=== PATIENT | female | born 1960 | race Caucasian/White ===

== ENCOUNTER 2020-08-26 12:47 | Outpatient (REF) | payer BC, SELFPAY | END 2020-08-26 12:48 | disposition home or self-care (01) | LOC: HO.BBR 12:47 | PROVIDERS: Visit Provider Internal Medicine Gastroenterology | DX: E83.110 Hereditary hemochromatosis (principal) | CPT/HCPCS: 99195 ==

== ENCOUNTER 2020-09-10 11:23 | Outpatient (REF) | payer BC, SELFPAY | END 2020-09-10 11:24 | disposition home or self-care (01) | LOC: HO.BBR 11:23 | PROVIDERS: PCP Internal Medicine; Visit Provider Internal Medicine Gastroenterology | DX: E83.110 Hereditary hemochromatosis (principal) | CPT/HCPCS: 99195 ==

== ENCOUNTER 2020-09-24 07:57 | Outpatient (REF) | payer BC, SELFPAY | END 2020-09-24 07:58 | disposition home or self-care (01) | LOC: HO.BBR 07:57 | PROVIDERS: Visit Provider Internal Medicine Gastroenterology | DX: Z13.89 Encounter for screening for other disorder (principal) ==

== ENCOUNTER 2020-12-25 08:05 | Outpatient (REF) | payer BC, SELFPAY | END 2020-12-25 08:06 | disposition home or self-care (01) | LOC: HO.BBR 08:05 | PROVIDERS: Visit Provider Internal Medicine Gastroenterology | DX: Z13.89 Encounter for screening for other disorder (principal) ==

== ENCOUNTER 2021-03-25 08:42 | Outpatient (REF) | payer BC, SELFPAY | END 2021-03-25 08:43 | disposition home or self-care (01) | LOC: HO.BBR 08:42 | PROVIDERS: Visit Provider Internal Medicine Gastroenterology | DX: Z13.89 Encounter for screening for other disorder (principal) ==

== ENCOUNTER 2021-07-22 08:03 | Outpatient (REF) | payer BC, SELFPAY | END 2021-07-22 08:04 | disposition home or self-care (01) | LOC: HO.BBR 08:03 | PROVIDERS: PCP Internal Medicine; Visit Provider Internal Medicine Gastroenterology | DX: Z13.89 Encounter for screening for other disorder (principal) ==

== ENCOUNTER 2022-01-12 08:38 | Outpatient (REF) | payer BC, SELFPAY | END 2022-01-12 08:39 | disposition home or self-care (01) | LOC: HO.BBR 08:38 | PROVIDERS: Visit Provider Internal Medicine Gastroenterology | DX: Z13.89 Encounter for screening for other disorder (principal) ==

== ENCOUNTER 2022-07-14 08:54 | Outpatient (REF) | payer BC, SELFPAY | END 2022-07-14 08:55 | disposition home or self-care (01) | LOC: HO.BBR 08:54 | PROVIDERS: Visit Provider Internal Medicine Gastroenterology | DX: Z13.89 Encounter for screening for other disorder (principal) ==

== ENCOUNTER 2022-12-08 07:58 | Outpatient (REF) | payer BC, SELFPAY | END 2022-12-08 07:59 | disposition home or self-care (01) | LOC: HO.BBR 07:58 | PROVIDERS: Visit Provider Internal Medicine Gastroenterology | DX: Z13.89 Encounter for screening for other disorder (principal) ==

== ENCOUNTER 2023-05-12 07:59 | Outpatient (REF) | payer BC, SELFPAY | END 2023-05-12 08:00 | disposition home or self-care (01) | LOC: HO.BBR 07:59 | PROVIDERS: Visit Provider Internal Medicine Gastroenterology | DX: Z13.89 Encounter for screening for other disorder (principal) ==

== ENCOUNTER 2023-10-17 09:07 | Outpatient (REF) | payer BC, SELFPAY | END 2023-10-17 09:08 | disposition home or self-care (01) | LOC: HO.BBR 09:07 | PROVIDERS: Visit Provider Internal Medicine Gastroenterology | DX: Z13.89 Encounter for screening for other disorder (principal) ==

== ENCOUNTER 2024-03-19 08:56 | Outpatient (REF) | payer BC, SELFPAY | END 2024-03-19 08:57 | disposition home or self-care (01) | LOC: HO.BBR 08:56 | PROVIDERS: PCP Internal Medicine; Visit Provider Internal Medicine Gastroenterology | DX: Z13.89 Encounter for screening for other disorder (principal) ==

== ENCOUNTER 2024-09-03 07:58 | Outpatient (REF) | payer BC, SELFPAY | END 2024-09-03 07:59 | disposition home or self-care (01) | LOC: HO.BBR 07:58 | PROVIDERS: PCP Internal Medicine; Visit Provider Internal Medicine Gastroenterology | DX: Z13.89 Encounter for screening for other disorder (principal) | CPT/HCPCS: 85018; 99195 ==

== ENCOUNTER 2024-09-24 08:10 | Outpatient (REF) | payer SELFPAY | END 2024-09-24 08:11 | disposition home or self-care (01) | LOC: HO.BBR 08:10 | PROVIDERS: PCP Internal Medicine; Visit Provider Internal Medicine Gastroenterology | DX: Z13.89 Encounter for screening for other disorder (principal) ==

== ENCOUNTER 2024-11-12 07:51 | Outpatient (AMB) | payer BC, SELFPAY ==
--- NOTE | 2024-11-12 07:47 | A.OFFVIS_ITS ---
Vital Signs 11/12/24 07:53 Height 5 ft 4 in Weight 201 lb 8 oz BMI 34.6 BP 132/88 Blood Pressure Location Lt brachial Position Sitting Pulse 80 Pulse Source Pulse Oximeter Pulse Oximetry (%) 97 Oxygen Delivery Method Room Air Intake Visit Reasons: ENP-FRAN Allergies celecoxib [From Celebrex] Allergy (Intermediate, Verified 11/12/24 07:56) Hives bisacodyl [From Dulcolax (bisacodyl)] Allergy (Verified 11/12/24 07:56) Hives sumatriptan Allergy (Verified 11/12/24 07:56) Hives Medication List - Last Reconciled 11/12/24 by Veronica Gil PA-C fluticasone furoate-vilanterol 200-25 mcg/dose 1 ea inhalation DAILY letrozole 2.5 mg PO DAILY omeprazole 40 mg PO QAM tirzepatide (Mounjaro) mg subcut HPI Comments Details: 63 year old female with Breast cancer in remission, referred to us by PCP for sleep evaluation. She reports she is on CPAP, however her machine is not working properly and she continues to have fragmented sleep, and feels exhausted. She goes to bed around 10pm wakes up at 7am with one bathroom break. She was sent to us by Dr. Esqueda with [facility]. for evaluation. She always wakes up with morning headaches, which become full blown migraines with auras photophobia/ phonophobia, vertigo, balance, difficulties. She says they are well controlled with her diet and lifestyle management. She is in remission for Breast Cancer, f/u with Dr. Woods and taking Letrozole. She has Hemachromotosis, Phlebotomy every 4 months. Doesn't have good results with her current sleep company getting replacement equipment. Her BMI is elevated and has type II Diabetes, on 12.5 Monjarou, subcut x1 week. Her mood is stable, some family changes and she is adjusting to [facility]. Diet is well balanced, vegetables, seafood, limits Red meat, denies alcohol, smoking. Headaches: Frontal always radiating to the back, painful, they can and do at times become full blown migraines with auras, photo/phonophobia, vertigo, balance difficulties and nausea. [facility] Surgical History Hx of cholecystectomy S/P right rotator cuff repair History of total left knee replacement Family History Mother Esophageal cancer Maternal Grandfather Leukemia Social History Household Members: Spouse Housing: House Alcohol intake: current Alcohol intake frequency: a few times a week Alcohol type: wine and hard liquor Patient Tobacco Use Status: Never used Tobacco service: No Current occupational status: retired Cognitive needs: No Hearing needs: No Vision needs: Yes Physical Exam Vital Signs: Last Vital Signs Pulse 80 11/12/24 07:53 BP 132/88 11/12/24 07:53 Pulse Ox 97 11/12/24 07:53 Oxygen Delivery Method Room Air 11/12/24 07:53 BMI result Body Mass Index 34.6 Const General: cooperative, comfortable and no acute distress Nutritional Appearance: average body habitus and obese (BMI 34) Orientation/consciousness: patient oriented x3 HEENT Face and sinus: Yes normal facial exam and Yes face symmetric Teeth and gingiva: other ([place] score of 3) Eyes Pupils: Equal, round and reactive pupils present EOM: Nystagmus present Resp Effort & Inspection: normal respiratory effort and able to speak in complete sentences Neuro General: patient oriented x3 and moves all extremities Cranial nerves: Yes CN's II-XII intact bilaterally, Yes Facial sensation intact/muscles of mastication intact, Yes Equal, round and reactive pupils present, Yes Normal accommodation reflex present, Yes Bilaterally intact EOM present, Yes Nystagmus not present, Yes Normal facial strength present, Yes Midline tongue present, Yes Ability to bilaterally rotate head present (Limited ROM R>L), Yes Ability to bilaterally elevate shoulders present and Yes Nystagmus present Cognition (Neuro): normal cognition Gait exam (Neuro): Normal gait present Motor exam (neuro): 5/5 motor strength present throughout, Pronator motor function not present, Tremors during motor activity present (R.hand tremor always present) and Motor abnormalites present (Tremor R Hand ) Deep tendon reflexes (DTR's): Right triceps reflex intensity grade: 2+, Left triceps reflex intensity grade: 2+, Rt Biceps (C5, C6): 2+, Left biceps reflex intensity grade: 2+, Right brachioradialis reflex intensity grade: 2+, Left brachioradialis reflex intensity grade: 2+, Right patellar reflex intensity grade: 2+, Left patellar reflex intensity grade: 2+, Right ankle reflex intensity grade: 2+ and Left ankle reflex intensity grade: 2+ Coordination: [id number] test normal Psych Appearance: grossly normal Speech and movement: Normal speech and movement present Affect: normal affect Thought process: Normal thought process present Thought content: Normal thought content present Insight: Good insight present (Psych) Judgement: Good judgement present (Psych) Assessment & Plan Assessment & Plan (1) Fatigue due to sleep pattern disturbance: Code(s): R53.83 - Other fatigue; G47.9 - Sleep disorder, unspecified Category: Medical (2) Morning headache: Code(s): R51.9 - Headache, unspecified Category: Medical (3) Tremor of right hand: Code(s): R25.1 - Tremor, unspecified Category: Medical (4) Cervicalgia: Code(s): M54.2 - Cervicalgia Category: Medical Plan Morning Headaches /Migraines with Cervicalgia Will discuss Triptans at next visit as she doesn't want to take anymore medications. Patient Education: Use of [place], neck wraps, topical lidocaine can be helpful for Cervicalgia d/t migraines. Fatigue / due to intermittent sleep patterns/ - will evaluate with HST. Patient Education: Sleep in a dark room, no devices in bed, no fluids 2-4 hours prior to bedtime. R. Hand / UE Tremor will send her to PT if bothersome. Will Follow up in 3 months, after Sleep Study. Call the office or message us if you have any questions or concerns. Orders: Orders RT home sleep study Today G47.9 - Sleep disorder, unspecified, R53.83 - Other fatigue Coding Level of Care Code Tele New Pt Level 3 (98979) Diagnoses Fatigue due to sleep pattern disturbance R53.83; G47.9 Morning headache R51.9 Tremor of right hand R25.1 Cervicalgia M54.2 Time Spent (min) 30 Comment Evaluation Sleep Questionnaire Difficulty falling asleep: Yes (take longer to sleep) Difficulty staying asleep?: Yes Number of arousals: muscle cramping LE Snoring: No Witnessed apneas: No Gasping arousals: No Nocturia: No GERD: Yes (Omeprazole ) Vivid dreams: No Acting out dreams: No Abnormal behavior in sleep: No Abnormal movements in sleep: No Morning headaches: Yes (cervical fusion c3-c6) Excessive daytime sleepiness: No Daytime naps: Yes (2x / a month) Restless legs: No Hallucinations: No Sleep paralysis: No Drop attacks: No Sleep Study: Yes (May 2020) CPAP: Yes (It is not working, needs new machine.)
[2024-11-12 07:53] VITALS: BP 132/88; PULSE 80; O2SAT 97; BMI 34.6
--- OUTSIDE RECORDS SUMMARY | 2024-11-12 07:53 | XMS_ITS ---
Author Organization Fahad Esqueda MD Address [address] [place] [id number] Care Team Providers Care Post Closing Specialist Name Role Phone Fahad Esqueda Primary Care Provider [phone] REASON FOR VISIT Test results Encounters Encounter Location Date Provider Diagnosis Fahad Esqueda MD [address] [place] [address] [place] [id number] 10/17/2024 Fahad Esqueda Plan Of Treatment Next Appt Details Provider Name:Fahad Esqueda , 02/20/2025 09:30:00 AM, [address] [place] [address], [id number], Provider Name:Fahad Esqueda , 05/15/2025 10:15:00 AM, [address] [place] [address], [phone], Progress Notes * Brigette SALCIDO LDOB: 3 (63 yo F)Acc No.[id number]:10/17/2024 Patient:?Brigette SALCIDO :1960???Age:63 Y???Sex:Female Address:[address] [place] [address], [address] * true * Date:? Generated for Marily ramirez/Yolande/eTransmitting on:?11/12/2024 07:53 AM EST
--- OUTSIDE RECORDS SUMMARY | 2024-11-12 07:54 | XMS_ITS | Continuity of Care Document ---
Author Organization [facility] Address [address] [place] [id number] Care Team Providers Care Licensed Nursing Assistant Name Role Phone Fahad Esqueda MD Primary Care Physician [phone] [id number] Date(s): 07/13/24 - 11/10/[address] [address] Attending Physician: Fahad Esqueda MD Admitting Physician: Fahad Esqueda MD Referring Physician: Fahad Esqueda MD Encounter Type: Pre-OutPatient One Time Allergies, Adverse Reactions, Alerts Substance Criticality Severity Reaction Reaction Severity Status Imitrex hives, trouble breathing Active Dulcolax Laxative hives , tr ouble breathing Active CeleBREX hives, trouble breathing Active Trulicity hives Active Immunizations Given and Recorded Vaccine Date Status Refusal Reason Hepatitis A-Hepatitis B Vaccine 1 08/26/08 Given Hepatitis A-Hepatitis B Vaccine 2 12/06/07 Given Hepatitis A-Hepatitis B Vaccine 3 11/08/07 Given 1Admin Note: twinrix#3 2Admin Note: twinrix#2 3Admin Note: twinrix#1 Medications albuterol CFC free 90 mcg/inh inhalation aerosol 2, puffs, Inhalation, 4 times a day, PRN, # 8 Gm, Refills 0, Maintenance, 08/08/20 9:43:00 AM EDT, Aerosol Start Date: 08/08/20 Status: Ordered Quantity: 8.0 Unit: g Repeat number: 1 benadryl elixir 4 oz; lidocaine viscous 2% 100 ml; mylanta or maalox 8 oz; benadryl elixir 4 oz; lidocaine viscous 2% 100 ml; mylanta or maalox 8 oz;, See Instructions, # 460mL, Refills 5, Tot. Refills 5, Maintenance, 1-2 tsp q 2-4 hrs prn. Take 5 min prior to swallowing food. Shake well before use and refrigerate unused portion, 10/24/20 11:06:00 AM EST, Compound, 161, cm, 08/27/20 10:09:00 EDT, Height, 96.5, kg, 08/27/20 10:09:00 EDT, Dry Weight Start Date: 10/24/20 Status: Ordered Quantity: 460.0 Unit: mL Repeat number: 6 D3 1000 2,000iu, By Mouth, Daily, 2000IU, 0 Refills, Maintenance, 12/31/20 3:51:00 PM EST, Partial fill uponpatient request if the prescription is for a schedule II opioid drug. Start Date: 12/31/20 Status: Ordered Repeat number: 1 Dulera 200 mcg-5 mcg/inh inhalation aerosol 0 Refills, Maintenance, 01/05/21 9:45:00 AM EST, Partial fill upon patient request if the prescription is for a schedule II opioid drug. Start Date: 01/05/21 Status: Ordered Repeat number: 1 fluticasone-vilanterol 200 mcg-25 mcg/inh inhalation powder 0 Refills, Maintenance, 05/01/24 1:11:00 PM EDT, Partial fill upon patient request if the prescription is for a schedule II opioid drug. Start Date: 05/01/24 Status: Ordered Repeat number: 1 gabapentin 300 mg oral capsule Refills 0, Maintenance, 05/01/24 1:12:00 PM EDT, Partial fill upon patient request if the prescription is for a schedule II opioid drug. Start Date: 05/01/24 Status: Ordered Repeat number: 1 letrozole 2.5 mg oral tablet 1 tablet, By Mouth, Daily, # 90 tablet, 3 Refills, Maintenance, 06/20/24 3:59:00 PM EDT, [facility]/pharmacy #[id number], 161, cm, 05/01/24 13:08:00 EDT, Height, 88.6, kg, 01/18/24 10:09:00 EDT, Dry Weight Start Date: 06/20/24 Stop Date: 06/15/25 Status: Ordered Quantity: 90.0 Unit: tablet Repeat number: 4 Loratadine 10 mg, By Mouth, Daily in AM, Refills 0, Maintenance, 07/11/20 1:29:00 PM EDT Start Date: 07/11/20 Status: Ordered Repeat number: 1 Medrol 4 mg oral tablet 1 pack/packet, By Mouth, Once, # 21 tablet, 0 Refills, Soft Stop, 05/01/24 1:30:00 PM EDT, Tablet, [facility]/pharmacy #[id number], Partial fill upon patient request if the prescription is for a schedule II opioiddrug., 161, cm, 05/01/24 13:08:00 EDT, Height, 88.6, kg, 01/18/24 10:09:00 EDT, Dry Weight Start Date: 05/01/24 Status: Ordered Quantity: 21.0 Unit: tablet Repeat number: 1 Mounjaro Subcutaneous Infusion, 0 Refills, Maintenance, 01/18/24 10:45:00 AM EDT, Partial fill upon patient request if the prescription is for a schedule II opioid drug. Start Date: 01/18/24 Status: Ordered Repeat number: 1 Mounjaro 5 mg/0.5 mL subcutaneous solution 0 Refills, Maintenance, 05/01/24 1:13:00 PM EDT, Partial fill upon patient request if the prescription is for a schedule II opioid drug. Start Date: 05/01/24 Status: Ordered Repeat number: 1 Multivitamin Tablet By Mouth, Daily, 0 Refills, Maintenance, 12/31/20 3:51:00 PM EST, Partial fill upon patient request if the prescription is for a schedule II opioid drug. Start Date: 12/31/20 Status: Ordered Repeat number: 1 Nexium 20 mg oral enteric coated capsule 1 capsule = 20 mg, By Mouth, 2 times a day, 0 Refills, Maintenance, 10/19/18 8:36:19 AM EST Start Date: 10/19/18 Status: Ordered Repeat number: 1 Ozempic (0.25 mg or 0.5 mg dose) 0 Refills, Maintenance, 01/27/22 9:59:00 AM EDT, Partial fill upon patient request if the prescription is for a schedule II opioid drug. Start Date: 01/27/22 Status: Ordered Repeat number: 1 Xigduo XR By Mouth, Daily in AM, 0 Refills, Maintenance, 08/17/21 3:18:00 PM EDT, Partial fill upon patient request if the prescription is for a schedule II opioid drug. Start Date: 08/17/21 Status: Ordered Repeat number: 1 Problem List Condition Confirmation Course Effective Dates Status Health St atus Informant Malignant neoplasm of lower-outer quadrant of right breast of female, estrogen receptor positive Confirmed Active Obese class II Confirmed Active Social History Social History Type Response Smoking Status Never (less than 100 in lifetime) entered on: 11/03/18 Sex Sex Representation Female (finding) Patient Care team information Care Team Personnel Name: Cheri Sullivan Position: [facility] Onco RN Member Role: Primary Care Nurse Name: Mala Herring RN Position: [facility] Onco RN Member Role: Primary Care Nurse Name: Mala East RN Position: [facility] Onco RN Member Role: Primary Care Nurse Name: Eli Pinon RN Position: [facility] Onco RN Member Role: Primary Care Nurse Name: Fahad Esqueda MD Position: [facility] Physician - Primary Care Member Role: PCP Address: [address] [place] [address] [address] [place] [address]- Telecom: Care Team Related Persons Name: SALO SALCIDO Insurance Providers Guarantor name: HEATHER OMARI Health Plan Information #: 1 Payer: [employer] Member Number: [id number] Policy Number: NA Group Number: [id number] Health Plan Information #: 2 Payer: [employer] Member Number: [id number] Policy Number: NA Group Number: [id number]
--- OUTSIDE RECORDS SUMMARY | 2024-11-12 07:54 | XMS_ITS ---
Author Organization [facility] Address [address] [place] [address] Phone Care Team Providers Care Drawbridge Operator Name Role Phone [facility] Unavailable [phone] Plan of Treatment No Plan of Treatment Recorded Assessments Includes: Assessments for all patient encounters No Assessments Recorded Medical Equipment - Implanted Devices Includes: Current and historical Devices No Medical Equipment Recorded Medications Includes: Current and historical Medications Current Medications (continue as prescribed) Augmentin 500-125 MG Oral Tablet 05/20/2022 Provider : Diagnosis: Last Documented On 2 7:55AM By Howard oMtta ; [facility] Bactrim 400-80 MG Oral Tablet 05/20/2022 Provider: Diagnosis: Last Documented On 2 7:55AM By Howard Motta ; [facility] Medications Administered Includes: Administered Medications in patient's chart No Administered Medications Recorded Results Includes: Results from 11/12/2023 through 11/12/2024 No Results Recorded For Specified Dates History of Present Illness History of Present Illness not supported for this document type No History of Present Illness Recorded Social History No Social History Recorded - Smoking Status Unknown Medical History Includes: Medical History in patient's chart No Medical History Recorded Family History Includes: Family History in patient's chart No Family History Recorded Review of Systems Review of Systems not supported for this document type No Review of Systems Recorded Mental Status No Mental Status Recorded Functional Status No Functional Status Recorded Physical Exam Physical Exam not supported for this document type No Physical Exam Recorded Insurance Includes: Active Insurance Policies Plan Name Member ID Group # Subscriber Relationship Effect zay Dates 1 - [employer] [id number] HEATHER SALCIDO Se lf Clinical Notes Includes: Signed Clinical Notes starting from 10/17/2022 No Clinical Notes Recorded
--- OUTSIDE RECORDS SUMMARY | 2024-11-12 07:54 | XMS_ITS | Clinical Summary ---
Author Organization [facility] Address [address] [place] [address] Phone Care Team Providers Care Worker'S Compensation Claims Examiner Name Role Phone [facility] [phone] Reason for Visit and Chief Complaint Post Op Visit/Follow Up Plan of Treatment Pending Tests Order Diagnosis Results Due Ordering P pietro Follow Up - Appointment 1 Week Cellulit is of right finger 05/20/22 Pa Duenas MD Last Documented On 2 8:14AM ; [facility] Assessments Includes: Assessments from this encounter No Assessments Recorded Medical Equipment - Implanted Devices Includes: Current Devices No Medical Equipment Recorded Medications Includes: Medications discussed during this encounter and other current Medications Current Medications (continue as prescribed) Augmentin 500-125 MG Oral Tablet 05/20/2022 Provider : Diagnosis: Last Documented On 2 7:55AM By Howard Motta ; [facility] Bactrim 400-80 MG Oral Tablet 05/20/2022 Provider: Diagnosis: Last Documented On 2 7:55AM By Howard Motta ; [facility] Medications Administered Includes: Administered Medications from this encounter No Administered Medications Recorded Vital Signs Includes: Vital Signs from this encounter Vital Name 05/20/2022 07:54A Blood Pressure Sitting (mmHg) 107/74 Pulse Rate-Sitting (bpm) 73 Temp-Oral (F) 97.7 Height (in) 64 Weight (lb) 200 Body Mass Index (kg/m2) 34.3 Body Surface Area (m2) 2.0 Oxygen Saturation (%) 98 Last Documented: On 05/20/2022 7:55AM ; [facility] Results Includes: Results discussed during this encounter No Results Recorded For Specified Dates History of Present Illness Includes: History of Present Illness from this encounter No History of Present Illness Recorded Social History No Social History Recorded - Smoking Status Unknown Medical History Includes: Medical History addressed during this encounter No Medical History Recorded Family History Includes: Family History addressed during this encounter No Family History Recorded Review of Systems Includes: Review of Systems from this encounter No Review of Systems Recorded Mental Status Includes: Mental Status from this encounter No Mental Status Recorded Functional Status Includes: Functional Status from this encounter No Functional Status Recorded Physical Exam Includes: Physical Exam from this encounter Encounters Encounter Provider Location Date Check-In Time Check-Out Time Diagnosis Post Op Visit/Follow Up Pa Duenas MD [facility] 05/20/20 22 8:00AM 8:16AM Insurance Includes: Active Insurance Policies Plan Name Member ID Group # Subscriber Relationship Effect zay Dates 1 - [facility] Elect [id number] HEATHER SALCIDO Se lf Clinical Notes Includes: Clinical Notes from this encounter No Clinical Notes Recorded
--- OUTSIDE RECORDS SUMMARY | 2024-11-12 07:54 | XMS_ITS | Clinical Summary ---
Author Organization [facility] Address [address] [place] [address] Phone Care Team Providers Care Orthopaedic Surgeon Name Role Phone [facility] Unavailable Unavailable Reason for Visit and Chief Complaint Established Patient Plan of Treatment No Plan of Treatment Recorded Assessments Includes: Assessments from this encounter No Assessments Recorded Medical Equipment - Implanted Devices Includes: Current Devices No Medical Equipment Recorded Medications Includes: Medications discussed during this encounter and other current Medications Current Medications (continue as prescribed) Augmentin 500-125 MG Oral Tablet 05/20/2022 Provider : Diagnosis: Last Documented On 2 7:55AM By Howard Motta ; [facility] Bactrim 400-80 MG Oral Tablet 05/20/2022 Provider: Diagnosis: Last Documented On 2 7:55AM By Howard Motta ; [facility] Medications Administered Includes: Administered Medications from this encounter No Administered Medications Recorded Vital Signs Includes: Vital Signs from this encounter Vital Name 06/03/2022 08:17A Blood Pressure Sitting (mmHg) 140/85 Pulse Rate-Sitting (bpm) 66 Temp-Temporal 97.1 Height (in) 64 Weight (lb) 200 Body Mass Index (kg/m2) 34.3 Body Surface Area (m2) 2.0 Oxygen Saturation (%) 99 Last Documented: On 06/03/2022 8:17AM ; [facility] Results Includes: Results discussed during this encounter [...] Location Date Check-In Time Check-Out Time Diagnosis Established Patient Isaiah Russo MD [facility] 022 8:20AM 8:23AM Insurance Includes: Active Insurance Policies Plan Name Member ID Group # Subscriber Relationship Effect zay Dates 1 - [employer] [id number] HEATHER SALCIDO Se lf Clinical Notes Includes: Clinical Notes from this encounter No Clinical Notes Recorded
--- OUTSIDE RECORDS SUMMARY | 2024-11-12 07:54 | XMS_ITS | Patient Health Record ---
Author Organization [facility] Address [address] [place] [phone] Care Team Providers Care Restaurant Greeter Name Role Phone [facility] Primary Care Provider Allergies Allergen (clinical drug ingredient) Drug/Non Drug Allergy documented on EMR Reaction Allergy Type Onset Date Status celecoxib Celebrex Hives Drug Allergy Active Doc-Q-Lace Unknown Drug Allergy Active sumatriptan Imitrex Unknown Drug Allergy Activ e spironolactone Spironolactone Unknown Drug Allergy Active dulaglutide Trulicity Itching Drug Allergy 04/08/2021 Acti ve Results Component Value Reference Range Notes Hemoglobin A1C Reviewed date:10/16/2024 06:33:53 PM Interpretation: Performing Lab: Notes/Report: [facility] Lot: [id number] Ferritin-[id number] Reviewed date:10/17/2024 09:05:08 AM Interpretation: Performing Lab:[facility], [address] [place] [address], Phone - [phone], Director - MDJodry Notes/Report: Ferritin 34 15-150 ng/mL Comp. Metabolic Panel (14)-3 [id number] Reviewed date:10/17/2024 09:05:08 AM Interpretation: Performing Lab:[facility], [email or web address] [facility], Phone - [phone], Director - MDJodry Notes/Report: Glucose 83 70-99 mg/dL BUN 15 8-27 mg/dL Creatinine 0.77 0.57-1.00 mg/dL eGFR 88 >59 mL/min/1.73 BUN/Creatinine Ratio 19 12-28 Sodium 140 134-144 mmol/L Potassium 4.1 3.5-5.2 mmol/L Chloride 103 96-106 mmol/L Carbon Dioxide, Total 22 20-29 mmol/L Calcium 9.7 8.7-10.3 mg/dL Protein, Total 6.9 6.0-8.5 g/dL Albumin 4.4 3.9-4.9 g/dL Globulin, Total 2.5 1.5-4.5 g/dL Bilirubin, Total 0.2 0.0-1.2 mg/dL Alkaline Phosphatase 97 44-121 IU/L AST (SGOT) 22 0-40 IU/L ALT (SGPT) 24 0-32 IU/L MR Cervical Spine WO Reviewed date:01/18/2024 06:22:43 PM Interpretation: Performing Lab: Notes/Report: Original Ordering Provider: FAHAD DE LA PAZ MD [facility] Hemoglobin A1C Reviewed date:08/03/2024 01:21:37 PM Interpretation: Performing Lab: Notes/Report: [facility] Lot: [id number] Iron and TIBC-[id number] Reviewed date:08/07/2024 06:13:28 PM Interpretation: Performing Lab:[facility], [address] [facility], Phone - [phone], Director - Umesh Notes/Report: Iron Bind.Cap.(TIBC) 329 250-450 ug/dL UIBC 163 118-369 ug/dL Iron 166 27-139 ug/dL Iron Saturation 50 15-55 % Urinalysis, Complete-[id number] Reviewed date:08/07/2024 06:13:28 PM Interpretation: Performing Lab:[facility], [address] [facility], Phone - [phone], Director - Umesh Notes/Report: Specific Dundee 1.008 1.005-1.030 pH 6.0 5.0-7.5 Urine-Color Yellow Yellow Appearance Clear Clear WBC Esterase Negative Negative Protein Negative Negative/Trace Glucose Trace Negative Ketones Negative Negative Occult Blood Negative Negative Bilirubin Negative Negative Urobilinogen,Semi-Qn 0.2 0.2-1.0 mg/dL Nitrite, Urine Negative Negative Microscopic Examination Micr oscopic follows if indicated. Microscopic Examination See below: Micr oscopic was indicated and was performed. WBC None seen 0 - 5 /hpf RBC 0-2 0 - 2 /hpf Epithelial Cells (non renal) None seen 0 - 10 /hpf Casts None seen None seen /lpf Bacteria None seen None seen/Few Ferritin-[id number] Reviewed date:08/07/2024 06:13:28 PM Interpretation: Performing Lab:[facility] [place], [address] [facility], Phone - [phone], Director - Umesh Notes/Report: Ferritin 82 15-150 ng/mL Albumin/Creatinine Ratio,Uri ne-[id number] Reviewed date:08/07/2024 06:13:28 PM Interpretation: Performing Lab:[facility] [place], [address] [facility], [place], Phone - [phone], Director - Umesh Notes/Report: Creatinine, Urine 18.3 Not Estab. mg/dL Albumin, Urine <3.0 Not Estab. ug/mL Alb/Creat Ratio <16 0-29 mg/g creat Normal: 0 - 29 Moderately increased: 30 - 300 Severely increased: >300 Comp. Metabolic Panel (14)-3 [id number] Reviewed date:08/07/2024 06:13:28 PM Interpretation: Performing Lab:[facility] [place], [address] [facility], [place], Phone - [phone], Director - Umesh Notes/Report: Glucose 65 70-99 mg/dL BUN 14 8-27 mg/dL Creatinine 0.70 0.57-1.00 mg/dL eGFR 98 >59 mL/min/1.73 BUN/Creatinine Ratio 20 12-28 Sodium 138 134-144 mmol/L Potassium 4.5 3.5-5.2 mmol/L Chloride 103 96-106 mmol/L Carbon Dioxide, Total 19 20-29 mmol/L Calcium 10.4 8.7-10.3 mg/dL Protein, Total 7.5 6.0-8.5 g/dL Albumin 4.5 3.9-4.9 g/dL Globulin, Total 3.0 1.5-4.5 g/dL Bilirubin, Total 0.3 0.0-1.2 mg/dL Alkaline Phosphatase 99 44-121 IU/L AST (SGOT) 29 0-40 IU/L ALT (SGPT) 28 0-32 IU/L Hemoglobin A1C Reviewed date:06/05/2024 07:18:33 AM Interpretation: Performing Lab: Notes/Report: [facility] ([facility]), [facility] Lot: [id number] Iron and TIBC-[id number] Reviewed date:06/05/2024 07:18:32 AM Interpretation: Performing Lab:[address], Phone - [phone], Director - Umesh Notes/Report: Iron Bind.Cap.(TIBC) 344 250-450 ug/dL UIBC 306 118-369 ug/dL Iron 38 27-139 ug/dL Iron Saturation 11 15-55 % Urinalysis, Complete-[id number] Reviewed date:06/05/2024 07:18:32 AM Interpretation: Performing Lab:[address], Phone - [phone], Director - Umesh Notes/Report: Specific Dundee 1.010 1.005-1.030 pH 6.0 5.0-7.5 Urine-Color Yellow Yellow Appearance Clear Clear WBC Esterase Negative Negative Protein Negative Negative/Trace Glucose Negative Negative Ketones Negative Negative Occult Blood Negative Negative Bilirubin Negative Negative Urobilinogen,Semi-Qn 0.2 0.2-1.0 mg/dL Nitrite, Urine Negative Negative Microscopic Examination Micr oscopic follows if indicated. Microscopic Examination See below: Micr oscopic was indicated and was performed. WBC None seen 0 - 5 /hpf RBC None seen 0 - 2 /hpf Epithelial Cells (non renal) None seen 0 - 10 /hpf Casts None seen None seen /lpf Bacteria None seen None seen/Few Ferritin-[id number] Reviewed date:06/05/2024 07:18:32 AM Interpretation: Performing Lab:[facility] [address], Phone - [phone], Director - Umesh Notes/Report: Ferritin 17 15-150 ng/mL CBC With Differential/Platel et-[id number] Reviewed date:06/05/2024 07:18:32 AM Interpretation: Performing Lab:[address], Phone - [phone], Director - Umesh Notes/Report: WBC 7.4 3.4-10.8 x10E3/uL RBC 5.06 3.77-5.28 x10E6/uL Hemoglobin 15.1 11.1-15.9 g/dL Hematocrit 47.2 34.0-46.6 % MCV 93 79-97 fL MCH 29.8 26.6-33.0 pg MCHC 32.0 31.5-35.7 g/dL RDW 13.2 11.7-15.4 % Platelets 347 150-450 x10E3/uL Neutrophils 68 Not Estab. % Lymphs 22 Not Estab. % Monocytes 7 Not Estab. % Eos 2 Not Estab. % Basos 1 Not Estab. % Neutrophils (Absolute) 5.0 1.4-7.0 x10E3/uL Lymphs (Absolute) 1.7 0.7-3.1 x10E3/uL Monocytes(Absolute) 0.5 0.1-0.9 x10E3/uL Eos (Absolute) 0.2 0.0-0.4 x10E3/uL Baso (Absolute) 0.1 0.0-0.2 x10E3/uL Immature Granulocytes 0 Not Estab. % Immature Grans (Abs) 0.0 0.0-0.1 x10E3/uL Vitamin D, 90-Jtrpsfx-[id number] Reviewed date:06/05/2024 07:18:32 AM Interpretation: Performing Lab:[facility], [address] [facility], [place], Phone - [phone], Director - Umesh Notes/Report: Vitamin D, 25-Hydroxy 41.1 30.0-100.0 ng/mL Vitamin D deficiency has been defined by the [place] of [employer] and an Endocrine Society practice guideline as a level of serum 25-OH vitamin D less than 20 ng/mL (1,2). The Endocrine Society went on to further define vitamin D insufficiency as a level between 21 and 29 ng/mL (2). 1. IOM ([place] of Medicine). 2010. Dietary reference intakes for calcium and D. [place]: The National Academies Press. 2. Roverto MF, Mario NC, Boris ADAMS, et al. Evaluation, treatment, and prevention of vitamin D deficiency: an Endocrine Society clinical practice guideline. JCEM. 2010; 96(7):1911-30. Albumin/Creatinine Ratio,Uri ne-[id number] Reviewed date:06/05/2024 07:18:33 AM Interpretation: Performing Lab:[facility], [address] [place] [address], Phone - [phone], Director - [facility] Notes/Report: Creatinine, Urine 18.3 Not Estab. mg/dL Albumin, Urine 6.5 Not Estab. ug/mL Alb/Creat Ratio 36 0-29 mg/g creat Normal: 0 - 29 Moderately increased: 30 - 300 Severely increased: >300 Comp. Metabolic Panel (14)-3 31225 Reviewed date:06/05/2024 07:18:33 AM Interpretation: Performing Lab:[facility] [place], [address] [place] [address], Phone - [phone], Director - [facility] Notes/Report: Glucose 98 70-99 mg/dL BUN 14 8-27 mg/dL Creatinine 0.67 0.57-1.00 mg/dL eGFR 99 >59 mL/min/1.73 BUN/Creatinine Ratio 21 12-28 Sodium 142 134-144 mmol/L Potassium 4.5 3.5-5.2 mmol/L Chloride 105 96-106 mmol/L Carbon Dioxide, Total 22 20-29 mmol/L Calcium 10.1 8.7-10.3 mg/dL Protein, Total 7.0 6.0-8.5 g/dL Albumin 4.5 3.9-4.9 g/dL Globulin, Total 2.5 1.5-4.5 g/dL Bilirubin, Total <0.2 0.0-1.2 mg/dL Alkaline Phosphatase 102 44-121 IU/L AST (SGOT) 25 0-40 IU/L ALT (SGPT) 22 0-32 IU/L LP+Non-HDL Cholesterol-[id number] 5 Reviewed date:06/05/2024 07:18:33 AM Interpretation: Performing Lab:[facility], [address] [place] [address], Phone - [phone], Director - [facility] Notes/Report: Cholesterol, Total 213 100-199 mg/dL Triglycerides 165 0-149 mg/dL HDL Cholesterol 69 >39 mg/dL VLDL Cholesterol Sridhar 29 5-40 mg/dL LDL Chol Calc (NIH) 115 0-99 mg/dL Non-HDL Cholesterol 144 0-129 mg/dL HCV Antibody-[id number] Reviewed date:06/05/2024 07:18:33 AM Interpretation: Performing Lab:[facility] [place], [address] [place] [address], Phone - [phone], Director - Umesh Notes/Report: Hep C Virus Ab Non Reactive Non Reactive HCV antibody alone does not differentiate between previously resolved infection and active infection. Equivocal and Reactive HCV antibody results should be followed up with an HCV RNA test to support the diagnosis of active HCV infection. PDF Report Reviewed date:06/05/2024 07:18:33 AM Interpretation: Performing Lab:[facility], [address] [facility], [place], Phone - [phone], Director - Umesh Notes/Report: 25OH VITAMIN D Reviewed date:12/22/2023 05:33:20 AM Interpretation: Performing Lab:Testing performed or reported by [facility], a Service of [address] [address] Art Elise MD, [employer] Maker CAAZ# [id number] Notes/Report: 25OH VITAMIN D 42.4 (20-50) NG/ML COMPLETE URINALYSIS Reviewed date:12/22/2023 05:33:20 AM Interpretation: Performing Lab:Testing performed or reported by [facility], a Service of [address] [address] Art Elise MD, Cap Maker CLAZ# [id number] Notes/Report: APPEAR/COLOR COLORLESS CLEAR SP. GRAVITY 1.023 (1.002-1.030) URINE PH 5.5 (5.0-8.0) URINE ALBUMIN NEGATIVE (NEG) URINE GLUCOSE 4+ (NEG) URINE KETONES NEGATIVE (NEG) URINE BILIRUBIN NEGATIVE (NEG) URINE HEMOGLOBIN NEGATIVE (NEG) URINE NITRITE NEGATIVE (NEG) URINE LEUKOCYTE NEGATIVE (NEG) UROBILINOGEN NORMAL (NORM) MG/DL URINE WBCs <1 (0-5) /HPF URINE RBCs NONE SEEN (0-3) /HPF SQUAMOUS EPITH <1 (0-8) /HPF COMPREHENSIVE METABOLIC PANE L Reviewed date:12/22/2023 05:33:20 AM Interpretation: Performing Lab:Testing performed or reported by [facility], a Service of [address] [address] Art Elise MD, Cap Maker CLGARCIA# [id number] Notes/Report: GLUCOSE 137 (70-99) MG/DL BUN 16 (8-23) MG/DL CREATININE 0.7 (0.5-1.0) MG/DL SODIUM 142 (133-145) MMOL/L POTASSIUM 3.7 (3.6-5.2) MMOL/L CHLORIDE 106 (98-107) MMOL/L BICARBONATE 24 (22-29) MMOL/L ANION GAP 12 (4-17) ALBUMIN 4.7 (3.4-4.8) GM/DL CALCIUM 10.1 (8.6-10.5) MG/DL BILIRUBIN,TOTAL 0.3 (0-1.2) MG/DL TOTAL PROTEIN 7.2 (6.2-8.2) GM/DL AG RATIO 1.9 AST 27 (0-32) U/L ALK PHOS 89 (35-104) U/L ALT 28 (0-33) U/L ESTIMATED GFR CREATININE 92 Creatinine based estimated glomerular filtration (eGFR) in adults is calculated using the National Kidney Foundation recommended 2020 CKD-EPI equation. Estimates GFR from serum creatinine, age and sex. FERRITIN Reviewed date:12/22/2023 05:33:20 AM Interpretation: Performing Lab:Testing performed or reported by [facility], [place] [address] Art Elise MD, [employer] Maker [facility]# [id number] Notes/Report: FERRITIN 19 (14-283) NG/ML IRON & TIBC Reviewed date:12/22/2023 05:33:20 AM Interpretation: Performing Lab:Testing performed or reported by [facility], [place] [address] Art Elise MD, Cap Maker [facility]# [id number] Notes/Report: IRON 61 (30-160) MCG/DL UNSATURATED IRON BINDING CAPAC 281 (110-370) MCG/DL EST T. IRON BIND CAPACITY 342 (140-530) MCG/DL % IRON SATURATION 18 (20-55) % URINARY MICROALBUMIN Reviewed date:12/22/2023 05:33:20 AM Interpretation: Performing Lab:Testing performed or reported by [facility], [place] [address] Art Elise MD, Cap Maker [facility]# [id number] Notes/Report: MICRO-ALBUMIN <12.0 (<20) MG/L The urine microalbumin test is designed to monitor renal function. When screening for Bence Duke proteinuria, urine electrophoresis is recommended. MALB/CREAT RATIO Unable to calculate (0-20) MG/GM URINE CREAT FOR MICRO ALBUMIN 49.4 Hemoglobin A1C Reviewed date:12/22/2023 05:33:20 AM Interpretation: Performing Lab: Notes/Report: [facility] MD [place] Lot: [id number] Reason For Referral Reason Faxed Diagnosis 1 Other spondylosis wi th radiculopathy, cervical region (M47.22) Referral Organization [facility] Referring Provider First Name Fahad Referring Provider Last Name Dheeraj Referring Provider Speciality Internal M edicine Referred Provider Kelechi Rivers Referred Provider Specialty Pain Medicin e General Notes Kati CRAWFORD 03:21:32 PM > faxed they will call Patient directly Referral Priority Routine Referral Appointment Date 02/29/2024 Reason faxed Diagnosis 1 Spondylosis without myelopathy or radiculopathy, cervical region (M47.812) Referral Organization [facility] Referring Provider First Name Fahad Referring Provider Last Name Dheeraj Referring Provider Speciality Internal M edicine Referred Provider [place] Referral, N [employer] Referred Provider Specialty Neurosurgery General Notes Lissa CRAWFORD 03/08 04:44:25 PM >faxed Referral Priority Routine Reason faxed Diagnosis 1 Obstructive sleep ap herve (adult) (pediatric) (G47.33) Referral Organization [facility] Referring Provider First Name Fahad Referring Provider Last Name Dheeraj Referring Provider Speciality Internal M edicine Referred Provider [place] Referral, M dfqbowx-Iipj-Bgvwxh-ID-Pulmonary Referred Provider Specialty Sleep Medici ne General Notes Lissa CRAWFORD 03/09 01:02:36 PM >faxed, Kati CRAWFORD 04/12/2024 02:22:26 PM > they will contact patient directly Referral Priority Routine Reason faxed Diagnosis 1 Hereditary hemochrom atosis (E83.110) Referral Organization [facility] Referring Provider First Name Fahad Referring Provider Last Name Dheeraj Referring Provider Speciality Internal M edicine Referred Provider Chapito Bailon Referred Provider Specialty Gastroentero logy General Notes Lissa CRAWFORD 04/08 10:51:06 AM >faxed Referral Priority Routine Reason faxed Diagnosis 1 Obstructive sleep ap herve (adult) (pediatric) (G47.33) Referral Organization [facility] Referring Provider First Name Fahad Referring Provider Last Name Dheeraj Referring Provider Speciality Internal M edicine Referred Provider Abimbola Pickard Referred Provider Specialty Sleep Medici ne General Notes [facility] 05:24[facility]32 PM >faxed Referral Priority Routine Medications Medication SIG (Take, Route, Frequency, Duration) Notes Start Date End Date Status DayVigo 5 MG 1 tablet at bedtime Orally Once a day for 10 days 04/08/2021 Not-Taking Acetaminophen 500 MG 1 tablet as needed Orally every 6 hrs Active Mounjaro 12.5 MG/0.5ML 12.5 mg Subcutaneous Once a Week Active Letrozole 2.5 MG 1 tablet Orally Once a day for 30 day(s) Active Calcium 600 MG Activ e Calcium 1200+D3 1200/1000 by mouth daily Active Multi For Her Active Omeprazole 40 MG TAKE 1 CAPSULE BY MOUTH EVERY DAY 30 MINUTES BEFORE BREAKFAST for 90 Active Loratadine 10 MG 1 tablet Orally Once a day for 30 day(s) Active Vitamin D3 2000 UNIT 2 Orally Once a day for 30 day(s) Active Fluticasone Furoate-Vilanterol 200-25 MCG/ACT INHALE 1 PUFF BY MOUTH EVERY DAY for 90 Active Gabapentin 300 MG TAKE 1 CAPSULE BY MOUTH TWICE DAILY for 90 Not-Taking Farxiga 10 MG 1 tablet Orally Once a day for 90 days Brand name only 12/21/2023 08/02/2025 Active Immunizations Vaccine Route Administration Date Status Comme nts Varicella Unknown 12/11/2018 Administered Series 1 as a child Pneumococcal polysaccharide PPV23 Unknown 12/08/2011 Administered Pneumococcal polysaccharide PPV23 Unknown 01/14/2017 Administered Influenza-Afluria (IIV4) Unknown 08/06/2021 Administered Influenza, seasonal, injectable (split), for 3 yrs and up Unknown 08/09/2012 Administered Influenza, seasonal, injectable (split), for 3 yrs and up Unknown 07/27/2013 Administered Influenza, seasonal, injectable (split), for 3 yrs and up Unknown 12/25/2014 Administered Influenza, seasonal, injectable (split), for 3 yrs and up Unknown 10/15/2015 Administered Influenza, seasonal, injectable (split), for 3 yrs and up Unknown 07/20/2017 Administered Influenza Vaccine, Seasonal, Quadrivalent, Recombinant, Preservative Free Unknown 08/27/2020 Administered Hep A-Hep B Unknown 11/08/2007 Administered Mfd by Glax o Glycodeine Hep A-Hep B Unknown 12/06/2007 Administered Mfd by Glax o Glycodeine Hep A-Hep B Unknown 08/26/2008 Administered Mfd by Glax o Glycodeine XPEZB-02-Xdyalso Vaccine Unknown 01/09/2021 Administered WRHYI-05-Dgdmevb Vaccine Unknown 02/06/2021 Administered UAUKM-48-Mounpnb Vaccine Unknown 10/12/2021 Administered COVID-19 Moderna BiValent Booster Unknown 09/17/2022 Administered *Tdap Unknown 04/24/2013 Administered *Tdap Unknown 10/16/2020 Administered *Influenza-Medicare-A S IM Intramuscular 08/06/2021 Administered *Influenza-Fluzone IM Intramuscular 08/03/2024 Administere d *Bxpxhwqzw-Ikbu-XU IM Intramuscular 09/26/2019 Administere d *Vevoinmng-Dvch-MM IM Intramuscular 08/18/2022 Administere d Social History Tobacco Use: Social History Observation Description Date Details (start date - stop date) Never Smoker NA - NA Tobacco Use/Smoking Question Answer Notes Are you a nonsmoker Additional Findings: Tobacco Non-User Non-smoker for personal reasons Alcohol Screen (Audit-C) Question Answer Notes Did you have a drink contain ing alcohol in the past year? Yes How often did you have a dri nk containing alcohol in the past year? 2 to 3 times a week (3 points) How many drinks did you have on a typical day when you were drinking in the past year? 3 or 4 drinks (1 point) How often did you have 6 or more drinks on one occasion in the past year? Never (0 point) Points 4 Interpretation Positive AUDIT-C (Standard) Question Answer Notes Did you have a drink contain ing alcohol in the past year? Yes How often did you have six o r more drinks on one occasion in the past year? Never (0 point) How many drinks did you have on a typical day when you were drinking in the past year? 1 or 2 drinks (0 point) How often did you have a dri nk containing alcohol in the past year? 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719) Active confirmed Problem Obstructive sleep apnea syndrome (81017062) Obstructive sleep apnea (adult) (pediatric) (G47.33) Active confirmed Problem Mild intermittent asthma (970162310) Mild intermittent asthma, uncomplicated (J45.20) Active confirmed Problem Gastro-esophageal reflux disease without esophagitis (625073869) Gastro-esophageal reflux disease without esophagitis (K21.9) Active confirmed Problem Diverticular disease of colon (268671781) Diverticulosis of large intestine without perforation or abscess without bleeding (K57.30) Active confirmed Problem Cholesterolosis of gallbladder (36510769) Cholesterolosis of gallbladder (K82.4) Active confirmed Problem 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 confirmed Problem Cervical spondylosis without myelopathy (677286461) Other spondylosis with radiculopathy, cervical region (M47.22) Active confirmed Problem Cervical spondylosis without myelopathy (823133217) Spondylosis without myelopathy or radiculopathy, cervical region (M47.812) Active confirmed Problem Cervicalgia (55800844) Cervicalgia (M54.2) Active confirmed Problem Artificial knee joint present (000985937083) Presence of left artificial knee joint (Z96.652) Active confirmed Problem History of polyp of colon (situation) (144491643) Personal history of colonic polyps (Z86.010) Active confirmed Problem Body mass index 35.00 to 39.99 (884169128454311) Body mass index [BMI] 37.0-37.9, adult (Z68.37) Active confirmed Problem Brachial plexus disorder (1296485) Brachial plexus disorders (G54.0) Inactive confirmed Problem Impaired fasting glucose (142385918) Impaired fasting glucose (R73.01) Inactive confirmed Problem Muscle pain (11944625) Myalgia, unspecified site (M79.10) Inactive confirmed Problem Body mass index 35.00 to 39.99 (772286016532048) Body mass index [BMI] 39.0-39.9, adult (Z68.39) Inactive confirmed Problem Cellulitis of finger of right hand (16733176006313760 ) Cellulitis of right finger (L03.011) Problem resolved confirmed Problem Abnormal findings on diagnostic imaging of breast (044926397) Other abnormal and inconclusive findings on diagnostic imaging of breast (R92.8) Problem resolved confirmed Vital Signs Heart Rate 67 /min 10/16/2024 Temperature 97.9 degrees Fahrenheit 10/16/2024 Blood pressure diastolic 72 mm Hg 10/16/2024 Oximetry 97 % 10/16/2024 Height 62.75 in 10/16/2024 Blood pressure systolic 124 mm Hg 10/16/2024 Weight 201 lbs 10/16/2024 BMI 35.89 kg/m2 10/16/2024 Encounters Encounter Location Date Provider Diagnosis Fahad De La Paz MD [address] [id number] 12/21/2023 Fahad De La Paz Type 2 diabetes mellitus with diabetic nephropathy E11.21 ; Mild intermittent asthma, uncomplicated J45.20 ; Hereditary hemochromatosis E83.110 ; Malignant neoplasm of overlapping sites of left female breast C50.812 ; Gastro-esophageal reflux disease without esophagitis K21.9 ; Obstructive sleep apnea (adult) (pediatric) G47.33 and Vitamin D deficiency, unspecified E55.9 Fahad De La Paz MD [address] [id number] 01/11/2024 Fahad De La Paz Other spondylosis wi th radiculopathy, cervical region M47.22 Fahad De La Paz MD [address] [id number] 05/01/2024 Fahad De La Paz Type 2 diabetes mellitus with diabetic nephropathy E11.21 ; Encounter for general adult medical examination without abnormal findings Z00.00 ; Mild intermittent asthma, uncomplicated J45.20 ; Hereditary hemochromatosis E83.110 ; Malignant neoplasm of overlapping sites of left female breast C50.812 ; Gastro-esophageal reflux disease without esophagitis K21.9 ; Obstructive sleep apnea (adult) (pediatric) G47.33 ; Personal history of colonic polyps Z86.010 ; Vitamin D deficiency, unspecified E55.9 ; Encounter for screening for malignant neoplasm of colon Z12.11 ; Encounter for screening mammogram for malignant neoplasm of breast Z12.31 ; Encounter for screening for osteoporosis Z13.820 ; Encounter for screening for cardiovascular disorders Z13.6 ; Encounter for immunization Z23 ; Encounter for antibody response examination Z01.84 ; Encounter for screening for other viral diseases Z11.59 and Radial styloid tenosynovitis [de Quervain] M65.4 Fahad De La Paz MD [address] [id number] 08/03/2024 Fahad De La Paz Type 2 diabetes mellitus with diabetic nephropathy E11.21 ; Mild intermittent asthma, uncomplicated J45.20 ; Hereditary hemochromatosis E83.110 ; Malignant neoplasm of overlapping sites of left female breast C50.812 ; Gastro-esophageal reflux disease without esophagitis K21.9 ; Obstructive sleep apnea (adult) (pediatric) G47.33 ; Vitamin D deficiency, unspecified E55.9 and Encounter for immunization Z23 Fahad De La Paz MD [address] [id number] 10/16/2024 Fahad De La Paz Type 2 diabetes mellitus with diabetic nephropathy E11.21 ; Mild intermittent asthma, uncomplicated J45.20 ; Hereditary hemochromatosis E83.110 ; Malignant neoplasm of overlapping sites of left female breast C50.812 ; Gastro-esophageal reflux disease without esophagitis K21.9 ; Obstructive sleep apnea (adult) (pediatric) G47.33 ; Vitamin D deficiency, unspecified E55.9 and Cellulitis of face L03.211 Fahad De La Paz MD [address] [id number] 12/23/2023 Fahad De La Paz Type 2 diabetes mellitus with diabetic nephropathy E11.21 Fahad De La Paz MD [address] [id number] 01/05/2024 Fahad De La Paz MD [address] [place] [address] [id number] 01/16/2024 Fahad De La Paz MD [address] [place] [address] [id number] 01/18/2024 Fahad De La Paz Other spondylosis wi th radiculopathy, cervical region M47.22 Fahad De La Paz MD [address] [facility] [address] [place] [address] [id number] 02/07/2024 Fahad De La Paz MD [address] [facility] [address] [place] [address] [id number] 08/07/2024 Fahad De La Paz Type 2 diabetes mellitus with diabetic nephropathy E11.21 Fahad De La Paz MD [address] [facility] [address] [place] [address] [id number] 08/07/2024 Fahad De La Paz MD [address] [facility] [address] [place] [address] [id number] 10/17/2024 Fahad De La Paz MD [address] [facility] [address] [place] [address] [id number] 02/13/2024 Fahad De La Paz Type 2 diabetes mellitus with diabetic nephropathy E11.21 and Other spondylosis with radiculopathy, cervical region M47.22 Fahad De La Paz MD [address] [facility] [address] [place] [address] [id number] 02/13/2024 Fahad De La Paz MD [address] [place] [address] [id number] 02/13/2024 Fahad De La Paz MD [address] [facility] [address] [place] [address] [id number] 02/28/2024 Fahad De La Paz MD [address] [facility] [address] [place] [address] [id number] 03/21/2024 Fahad De La Paz MD [address] [facility] [address] [place] [address] [id number] 03/30/2024 Fahad De La Paz Spondylosis without myelopathy or radiculopathy, cervical region M47.812 Fahad De La Paz MD [address] [facility] [address] [place] [address] [id number] 04/03/2024 Fahad De La Paz MD [address] [id number] 04/06/2024 Fahad De La Paz Obstructive sleep ap herve (adult) (pediatric) G47.33 Assessments Encounter Date Diagnosis (ICD Code) Assessment Notes Treatment Notes Treatment Clinical Notes Section Notes 08/03/2024 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 She has not had her GLP injections consistently due to availability at the pharmacy and she does not know why she is no longer taking Farxiga. Recommend resume Farxiga and resume GIP therapy. 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 This may be holiday dietary indiscretion related rather than medication failure. Given the significant improvement of her A1c can discontinue metformin since this does not afford any cardio vascular protection. 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 Continue same. 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 This is most likely related to the long thoracic nerve and probably multi focal etiology. This is probably related to C5 and possibly C4 distribution. Recommend MRI and gabapentin. Given her prior surgical intervention MRI would be useful to evaluate for progressive disease with radicular symptoms. Can use gabapentin as tolerated. 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 Continue Mounjaro and increase as tolerated to at least good dose of 10 mg to achieve not only better diabetes control but also better weight loss which will help facilitate control of early comorbidities. 05/01/2024 Encounter for general adult medical examination without abnormal findings (ICD-10 - Z00.00) General healthcare up-to-date. 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 She may need phlebotomy 3 times year as opposed to 2 times year. Recheck labs and she will contact GI to see if they can schedule her phlebotomy for 3 times a year 12/21/2023 Hereditary hemochromatosis (ICD-10 - E83.110) Stable at present. Continue periodic phlebotomy. Her ALT is normal. Her ferritin is low. Continue to monitor and adjust phlebotomy as indicated 08/03/2024 Hereditary hemochromatosis (ICD-10 - E83.110) Stable on recent labs reviewed. Can recheck status. She has some cramps which may be related to her depressed ferritin. Unfortunately may not be able to treat this due to hemochromatosis and iron toxicity if we allow her to have a higher ferritin level. 12/21/2023 Malignant neoplasm of overlapping sites of left female breast (ICD-10 - C50.812) Continues on chemoprophylaxis as adjunct therapy for breast cancer without evidence of radiologic recurrence. 08/03/2024 Malignant neoplasm of overlapping sites of left female breast (ICD-10 - C50.812) Continues on chemoprophylaxis as adjunct therapy for breast cancer. She has follow-up with breast center. 10/16/2024 Malignant neoplasm of overlapping sites of left female breast (ICD-10 - C50.812) Continues on chemoprophylaxis as adjunct therapy for breast cancer. She has follow-up with breast center. 05/01/2024 Hereditary hemochromatosis (ICD-10 - E83.110) Stable at present. She is trying to get her phlebotomy prescription refilled at . Recommend follow-up there and if not able to then would consider prescribing phlebotomy at local blood bank. 05/01/2024 Malignant neoplasm of overlapping sites of left female breast (ICD-10 - C50.812) Continues on chemoprophylaxis as adjunct therapy for breast cancer. She has follow-up with [facility]. She has mammogram pending later this fall. 10/16/2024 Gastro-esophageal reflux disease without esophagitis (ICD-10 - K21.9) Clinically stable at present 12/21/2023 Gastro-esophageal reflux disease without esophagitis (ICD-10 - K21.9) Clinically stable at present 08/03/2024 Gastro-esophageal reflux disease without esophagitis (ICD-10 - K21.9) Clinically stable at present 08/03/2024 Obstructive sleep apnea (adult) (pediatric) (ICD-10 - G47.33) Continues to use CPAP with benefit. 12/21/2023 Obstructive sleep apnea (adult) (pediatric) (ICD-10 - G47.33) Continues to use CPAP with benefit 10/16/2024 Obstructive sleep apnea (adult) (pediatric) (ICD-10 - G47.33) She is having difficult time getting supplies for her CPAP machine. She has not had any new supplies for about a year due to scheduling issues with sleep management providers. Can try to see if we can find a different provider for her that will facilitate her treatment and otherwise CPAP would benefit 05/01/2024 Gastro-esophageal reflux disease without esophagitis (ICD-10 - K21.9) Clinically stable at present 05/01/2024 Obstructive sleep apnea (adult) (pediatric) (ICD-10 - G47.33) Continues to use CPAP with benefit. She would benefit from increasing Mounjaro dose not only for diabetes management but also for CPAP improvement. Recent data suggest that she may have a 50% improvement with additional weight loss. 10/16/2024 Vitamin D deficiency, unspecified (ICD-10 - E55.9) Stable on prior labs as reviewed. Continue vitamin D supplementation for goal level of 30+ if possible 50+ 12/21/2023 Vitamin D deficiency, unspecified (ICD-10 - E55.9) Stable on recent labs as reviewed. Continue vitamin D supplementation for goal level of 50 08/03/2024 Vitamin D deficiency, unspecified (ICD-10 - E55.9) Stable on prior labs as reviewed. Continue vitamin D supplementation for goal level of 30+ if possible 50+ 08/03/2024 Encounter for immunization (ICD-10 - Z23) 10/16/2024 Cellulitis of face (ICD-10 - L03.211) She developed a painful left nare about 3 to 4 days ago. She has been using hydrocortisone on it. This appears to be a suppurative cellulitis and is probably a staph related infection and recommend antibiotic therapy. 05/01/2024 Personal history of colonic polyps (ICD-10 - Z86.010) 05/01/2024 Vitamin D deficiency, unspecified (ICD-10 - E55.9) Stable on prior labs as reviewed. Continue vitamin D supplementation for goal level of 30+ if possible 50+ 05/01/2024 Encounter for screening for malignant neoplasm of colon (ICD-10 - Z12.11) Up-to-date on colon cancer screening 05/01/2024 Encounter for screening mammogram for malignant neoplasm of breast (ICD-10 - Z12.31) Up-to-date on breast cancer screening 05/01/2024 Encounter for screening for osteoporosis (ICD-10 - Z13.820) Up-to-date on osteoporosis screening 05/01/2024 Encounter for screening for cardiovascular disorders (ICD-10 - Z13.6) Blood pressure Is slightly elevated. Recommend weight loss with medical therapy and then reevaluate need for chronic medical therapy. Can check for comorbidity of hyperlipidemia and hyperglycemia to further assess risk 05/01/2024 Encounter for immunization (ICD-10 - Z23) Vaccines up-to-date 05/01/2024 Encounter for antibody response examination (ICD-10 - Z01.84) Titers have been checked in the past and there is immunity to rubeola 05/01/2024 Encounter for screening for other viral diseases (ICD-10 - Z11.59) Can screen for hepatitis C as per general recommendation 05/01/2024 Radial styloid tenosynovitis [de Quervain] (ICD-10 - M65.4) She had been working in the garden and developed left thumb pain which is de Quervain's tendinitis. Recommend jmui-[id number]-ejcairk thumb spica splint and if not improving in 2 weeks then will need referral for injection evaluation 12/21/2023 Other This note was created with voice dictation recognition software and may contain errors of grammar and syntax. Also labs were reviewed with patient. 01/11/2024 Other This note was created with voice dictation recognition software and may contain errors of grammar and syntax. 05/01/2024 Other This note was created with voice dictation recognition software and may contain errors of grammar and syntax. Also labs were reviewed with patient. 10/16/2024 Other This note was created with voice dictation recognition software and may contain errors of grammar and syntax. Also labs were reviewed with patient. Plan Of Treatment Pending Test Test Name Order Date Hemoglobin A1c 01/24/2019 Pulmonary Function Test 12/09/2021 25OH VITAMIN D 01/01/2021 25OH VITAMIN D 01/20/2023 25OH VITAMIN D 08/18/2022 COMPLETE CBC WITH DIFF 01/20/2023 COMPLETE URINALYSIS 01/01/2021 COMPLETE URINALYSIS 01/20/2023 COMPLETE URINALYSIS 08/18/2022 COMPREHENSIVE METABOLIC PANEL 08/18/2022 COMPREHENSIVE METABOLIC PANEL 01/01/2021 COMPREHENSIVE METABOLIC PANEL 01/20/2023 FERRITIN 01/20/2023 FERRITIN 01/01/2021 FERRITIN 08/18/2022 HEMOGLOBIN A1C 01/20/2023 IRON & TIBC 01/20/2023 LIPID PANEL W REFLEX TO DLDL 01/01/2021 TSH 01/01/2021 URINARY MICROALBUMIN 01/01/2021 URINARY MICROALBUMIN 01/20/2023 URINARY MICROALBUMIN 08/18/2022 Hand Min 3 Views Left 07/14/2023 VITAMIN D, 25-HYDROXY 04/08/2021 Knee 1 or 2 Views Left 01/20/2023 Hand Min 3 Views Right 07/14/2023 ANTI-HEPATITIS C W/RFLX HCV QNT 05/17/20 22 HIV AB-AG W/RFLX TO HIV QNT 05/17/2022 Future Test Test Name Order Date COMPREHENSIVE METABOLIC PANEL 02/04/2019 Next Appt Details Provider Name:Fahad De La Paz , 02/20/2025 09:30:00 AM, [address] [place] [address], [phone], Provider Name:Fahad De La Paz , 05/15/2025 10:15:00 AM, [address] [place] [address], [phone], Insurance Providers Payer Name Payer Address Payer Phone Subscriber Number Group Number Insured Name Patient Relationship to Insured Coverage Start Date Coverage End Date [employer] BLUE CARD [address] [place] [address] [phone] [id number] Genishadia Brigette Self - patient is the insured Medical (General) History Medical History History ICD Code Hereditary hemochromatosis E83.110 Mild intermittent asthma, uncomplicated J45.20 Gastro-esophageal reflux disease without esophagitis K21.9 Vitamin D deficiency, unspecified E55.9 Chronic migraine without aura, intractab le, without status migrainosus G43.719 Presence of left artificial knee joint Z 96.652 Impaired fasting glucose R73.01 Cellulitis of right finger (resolved 09/2022) Other abnormal and inconclus zay findings on diagnostic imaging of breast (resolved 04/13/2023) Surgical History Surgery Date(Month/Year) Anterior cervical fusion, C3-C4, C4-C5 rotator cuff tear repair, RT Knee Replacement, LEFT partial hysterectomy bunionectomy hammer toe lumpectomy, left breast 08/2020 lumpectomy, right breast 08/2020 Right hand middle finger surgery 05/2022 Hospitalization History Reason Date(Month/Year)
--- OUTSIDE RECORDS SUMMARY | 2024-11-12 07:54 | XMS_ITS | Continuity of Care Document ---
Author Organization [facility] Address [address] [place] [id number]- Care Team Providers Care Bank Worker Name Role Phone Fahad Esqueda MD Primary Care Physician [phone] [place] [facility] [place] - 11/10/[address] [address] Attending Physician: Antwan Ansari Admitting Physician: Antwan Ansari Referring Physician: Antwan Ansari Referring Physician: Kati Bello Encounter Type: Triage Allergies, Adverse Reactions, Alerts Substance Criticality Severity [...] 3 Refills, Maintenance, 06/20/24 3:59:00 PM EDT, [facility]/pharmacy #[id number], 161, cm, 05/01/24 13:08:00 EDT, [...] Soft Stop, 05/01/24 1:30:00 PM EDT, Tablet, [facility]/pharmacy #[id number], Partial fill upon patient request [...] Care Team Personnel Name: Cheri Sullivan Position: [facility] Onco RN Member Role: Primary Care Nurse Name: Mala Herring RN Position: [facility] Onco RN Member Role: Primary Care Nurse Name: Mala East RN Position: [facility] Onco RN Member Role: Primary Care Nurse Name: Eli Pinon RN Position: [facility] Onco RN Member Role: Primary Care Nurse Name: Fahad Esqueda MD Position: [facility] Physician - Primary Care Member Role: PCP Address: [address] [place] [address] [address] [place] [address]- Telecom: Care Team Related Persons Name: SALO SALCIDO Insurance Providers Guarantor name: HEATHER SALCIDO Health Plan Information #: 1 Payer: [employer] Member Number: NA Policy Number: NA Group Number: NA
--- OUTSIDE RECORDS SUMMARY | 2024-11-12 07:54 | XMS_ITS ---
Care Plan - [facility] Created on: November 12, 2024 HEATHER SALCIDO : 1960 Sex: Female Author Organization [facility] Address [address] [place] [phone] Phone Care Team Providers Care Liner Man Name Role Phone [facility] Unavailable Unavailable
--- OUTSIDE RECORDS SUMMARY | 2024-11-12 07:54 | XMS_ITS ---
Author Organization [facility] Address [address] [id number] Care Team Providers Care [employer] Consultant Name Role Phone Fahad Esqueda Primary Care Provider Allergies Allergen (clinical drug [...] 06:33:53 PM Interpretation: Performing Lab: Notes/Report: [facility] [place] [facility] [place] Lot: [id number] Ferritin-[id number] Reviewed date:10/17/2024 09:05:08 AM Interpretation: Performing Lab:Lab[facility]isa Almazan, [facility], Phone - [phone], Director - Rossiy Notes/Report: Ferritin 34 15-150 ng/mL Comp. Metabolic Panel ([id number] Reviewed date:10/17/2024 09:05:08 AM Interpretation: Performing Lab:Xavi Almazan, [facility], Phone - [phone], Director - MDJuanyy Notes/Report: Glucose 83 70-99 mg/dL BUN 15 [...] 0-40 IU/L ALT (SGPT) 24 0-32 IU/L Reason For Referral Reason faxed Diagnosis 1 Obstructive sleep ap herve (adult) (pediatric) (G47.33) Referral Organization [facility] Referring Provider First Name Fahad Referring Provider Last Name Dheeraj Referring Provider Speciality Internal M edicine Referred Provider Abimbola Pickard Referred Provider Specialty Sleep Medici ne General Notes [facility]/07 05:24:32 PM >faxed Referral Priority Routine REASON FOR VISIT 2m f/u DM Medications Medication SIG (Take, Route, Frequency, Duration) Notes Start Date End Date Status Doxycycline Hyclate 100 MG 1 capsules Orally every 12 hrs for 7 days 10/16/2024 10/23/2024 Active DayVigo 5 MG 1 tablet at bedtime Orally Once a day for 10 days 04/08/2021 Not-Taking Gabapentin 300 MG TAKE 1 CAPSULE BY MOUTH TWICE DAILY for 90 Not-Taking Calcium 600 MG Activ e Calcium 1200+D3 1200/1000 by mouth daily Active Acetaminophen 500 MG 1 tablet as needed Orally every 6 hrs Active Mounjaro 12.5 MG/0.5ML 12.5 mg Subcutaneous Once a Week Active Letrozole 2.5 MG 1 tablet Orally Once a day for 30 day(s) Active Loratadine 10 MG 1 tablet Orally Once a day for 30 day(s) Active Vitamin D3 2000 UNIT 2 Orally Once a day for 30 day(s) Active Fluticasone Furoate-Vilanterol 200-25 MCG/ACT INHALE 1 PUFF BY MOUTH EVERY DAY for 90 Active Farxiga 10 MG 1 tablet Orally Once a day for 90 days Brand name only 12/21/2023 08/02/2025 Active Multi For Her Active Omeprazole 40 MG TAKE 1 CAPSULE BY MOUTH EVERY DAY 30 MINUTES BEFORE BREAKFAST for 90 Active Social History Tobacco Use: Social History Observation [...] week (3 points) Points 3 Interpretation Positive Vital Signs BMI 35.89 kg/m2 10/16/2024 Height 62.75 in 10/16/2024 Weight 201 lbs 10/16/2024 Temperature 97.9 degrees Fahrenheit 10/16/20 24 Heart Rate 67 /min 10/16/2024 Oximetry 97 % 10/16/2024 Blood pressure systolic 124 mm Hg 10/16/20 24 Blood pressure diastolic 72 mm Hg 024 Encounters Encounter Location Date Provider Diagnosis Fahad Esqueda MD 50 [facility] [address] [place] [phone] 10/16/2024 Fahad Esqueda Type 2 diabetes mellitus with diabetic nephropathy E11.21 ; Mild intermittent asthma, uncomplicated J45.20 ; Hereditary hemochromatosis E83.110 ; Malignant neoplasm of overlapping sites of left female breast C50.812 ; Gastro-esophageal reflux disease without esophagitis K21.9 ; Obstructive sleep apnea (adult) (pediatric) G47.33 ; Vitamin D deficiency, unspecified E55.9 and Cellulitis of face L03.211 Assessments Encounter Date Diagnosis (ICD Code) Assessment Notes Treatment Notes Treatment Clinical Notes Section Notes 10/16/2024 Type 2 diabetes mellitus with diabetic [...] her phlebotomy for 3 times a year 10/16/2024 Malignant neoplasm of overlapping sites of left female breast (ICD-10 - C50.812) Continues on chemoprophylaxis as adjunct therapy for breast cancer. She has follow-up with breast center. 10/16/2024 Gastro-esophageal reflux disease without esophagitis (ICD-10 - K21.9) Clinically stable at present 10/16/2024 Obstructive sleep apnea (adult) (pediatric) (ICD-10 - G47.33) She is having difficult time getting supplies for her CPAP machine. She has not had any new supplies for about a year due to scheduling issues with sleep management providers. Can try to see if we can find a different provider for her that will facilitate her treatment and otherwise CPAP would benefit 10/16/2024 Vitamin D deficiency, unspecified (ICD-10 - E55.9) Stable on prior labs as reviewed. Continue vitamin D supplementation for goal level of 30+ if possible 50+ 10/16/2024 Cellulitis of face (ICD-10 - L03.211) She developed a painful left nare about 3 to 4 days ago. She has been using hydrocortisone on it. This appears to be a suppurative cellulitis and is probably a staph related infection and recommend antibiotic therapy. 10/16/2024 Other This note was created with voice dictation recognition software and may contain errors of grammar and syntax. Also labs were reviewed with patient. Plan Of Treatment Medication Medication Name Sig Start Date Stop Date Notes Doxycycline Hyclate 100 MG 1 capsules Or ally every 12 hrs for 7 days 10/16/2024 10/23/2024 Mounjaro 12.5 MG/0.5ML 12.5 mg Subcutane ous Once a Week Referrals Referral Date Details 10/16/2024 10/16/2024, faxed, Priti Pickard Next Appt Details Follow Up: 4 Months, Reason: Diabetes Provider Name:Fahad Esqueda , 02/20/2025 09:30:00 AM, [address] [place] [address], [address], [phone], Provider Name:Fahad Dheeraj , 05/15/2025 10:15:00 AM, [address] [place] [address], [address], [phone], Progress Notes * Brigette SALCIDO LDOB: 3 (63 yo F)Acc No.[id number]:10/16/2024 Progress Notes Patient:?Brigette SALCIDO L Provider:?Fahad Esqueda MD :1960???Age:63 Y???Sex:Female D ate:10/16/2024 Address:[address] [place] [address] Structured Data:Care team [facility] Stratification : High Risk Subjective: * Chief Complaints: * ???2m f/u DM * HPI: ???Hemochromatosis:?Shortness of breath:?at baseline .?Asthma:?The patient presents for follow-up of asthma?which was diagnosed years ago.?Oncology:?c/o BREAST CANCER:.? * Medical History:? * Surgical History:?Anterior c ervical fusion, C3-C4, C4-C5 rotator cuff tear repair, RT Knee Replacement, LEFT partial hysterectomy bunionectomy hammer toe lumpectomy, left breast 08/2020lumpectomy, right breast 08/2020Right hand middle finger surgery 05/2022 * Hospitalization/Major Diagno stic Procedure:?No Hospitalization History. * Family History:?Father: dece ased 87 yrs, Hemochromatosis.?Mother: , Cancer esophageal.?Son(s): 1986- [id number].?Daughter(s): 27 yrs, Healthy.?Siblings: alive, 1 brother alive dx'd 03/2019 Liposarcoma.?Maternal Grand Father: , Leukemia.?Maternal Grand Mother: , Diabetes,cancer unknown.?Maternal aunt: , Breast cancer 50?.?2 brother(s) , 1 sister(s) . 2 son(s) , 1 daughter(s) . .? (AWV) Family history verified no changes since last visit Cousin first degree with bone cancer. * Social History:?Tobacco Use:?Tobacco Use/Smoking?Are you a?nonsmoker ?Additional Findings: Tobacco Non-User?Non-smoker for personal reasons ???Drugs/Alcohol:?Drugs?Have you used drugs other than those for medical reasons in the past 12 months??No ?Alcohol Screen (Audit-C)?Did you have a drink containing alcohol in the past year??Yes ?How often did you have a drink containing alcohol in the past year??2 to 3 times a week (3 points) ?How many drinks did you have on a typical day when you were drinking in the past year??3 or 4 drinks (1 point) ?How often did you have 6 or more drinks on one occasion in the past year??Never (0 point) ?Points?4 ?Interpretation?Positive ?Caffeine?Intake:?2-3 cups per day ?Do you smoke marijuana?: Denies. ?Do you drink alcohol?: Yes, Socially. ???Miscellaneous:?Exercise: yes, occasionally, rowing machine,, walking. 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 ???Household:?Household?Marital status:?Drug/Alcohol:?AUDIT-C (Standard)?Did you have a drink containing alcohol in the past year??Yes ?How often did you have six or more drinks on one occasion in the past year??Never (0 point) ?How many drinks did you have on a typical day when you were drinking in the past year??1 or 2 drinks (0 point) ?How often did you have a drink containing alcohol in the past year??2 to 3 times a week (3 points) ?Points?3 ?Interpretation?Positive * Medications:?TakingFluticaso ne Furoate-Vilanterol 200-25 MCG/ACT Aerosol Powder Breath Activated INHALE 1 PUFF BY MOUTH EVERY DAY Farxiga 10 MG Tablet 1 tablet Orally Once a day , stop date 08/02/2025, Notes to Pharmacist: Brand name onlyOmeprazole 40 MG Capsule Delayed Release TAKE 1 CAPSULE BY MOUTH EVERY DAY 30 MINUTES BEFORE BREAKFAST Multi For Her Vitamin D3 2000 UNIT Capsule 2 Orally Once a day Loratadine 10 MG Tablet 1 tablet Orally Once a day Letrozole 2.5 MG Tablet 1 tablet Orally Once a day Acetaminophen 500 MG Tablet 1 tablet as needed Orally every 6 hrs Calcium 1200+D3 1200/1000 by mouth daily Calcium 600 MG Tablet Mounjaro 10 MG/0.5ML Solution Pen-injector 10 mg Subcutaneous Once a Week Taking Fluticasone Furoate-Vilanterol 200-25 MCG/ACT Aerosol Powder Breath Activated INHALE 1 PUFF BY MOUTH EVERY DAY Taking Farxiga 10 MG Tablet 1 tablet Orally Once a day , stop date 08/02/2025, Notes to Pharmacist: Brand name onlyTaking Omeprazole 40 MG Capsule Delayed Release TAKE 1 CAPSULE BY MOUTH EVERY DAY 30 MINUTES BEFORE BREAKFAST Taking Multi For Her Taking Vitamin D3 2000 UNIT Capsule 2 Orally Once a day Taking Loratadine 10 MG Tablet 1 tablet Orally Once a day Taking Letrozole 2.5 MG Tablet 1 tablet Orally Once a day Taking Acetaminophen 500 MG Tablet 1 tablet as needed Orally every 6 hrs Taking Calcium 1200+D3 1200/1000 by mouth daily Taking Calcium 600 MG Tablet Taking Mounjaro 10 MG/0.5ML Solution Pen-injector 10 mg Subcutaneous Once a Week Not-Taking/PRNGabapentin 300 MG Capsule TAKE 1 CAPSULE BY MOUTH TWICE DAILY DayVigo 5 MG Tablet 1 tablet at bedtime Orally Once a day Medication List reviewed and reconciled with the patientNot-Taking/PRN Gabapentin 300 MG Capsule TAKE 1 CAPSULE BY MOUTH TWICE DAILY Not-Taking/PRN DayVigo 5 MG Tablet 1 tablet at bedtime Orally Once a day Medication List reviewed and reconciled with the patient * Allergies:?Celebrex: Hives - CvzwijkKaw-M-Okvf: AllergyImitrex: AllergySpironolactone: AllergyTrulicity: Itching - Side Effects - Criticality Low - Onset Date 04/08/2021no[Allergies Verified] Objective: * Vitals:?Temp:97.9F, HR:67/mi n, BP:Sitting Right Arm: 124/72mm Hg, Wt:201lbs, BMI:35.89Index, Ht:62.75in, Oxygen sat %:97%. Past Vitals:* 08/03/2024 Temp:97.5F, HR:95/min, BP:Si tting Right Arm: 124/74mm Hg, Wt:205lbs, BMI:36.6Index, Ht:62.75in, Oxygen sat %:99% * 05/01/2024 Wt:202lbs, BMI:36.06Index, H t:62.75in * 01/11/2024 Temp:98.6F, HR:90/min, Wt:19 4.60lbs, BMI:34.74Index, Ht:62.75in, Oxygen sat %:98% * ???Past Orders: ???Lab:CBC With Differential /Platelet-[id number] (Order Date - 05/01/2024) (Collection Date & Time - 05/01/2024 09:49 AM) ? Value Reference Range ?WBC 7.4 3.4-10.8 - x10E 3/uL ?RBC 5.06 3.77-5.28 - x10E6/uL ?Hemoglobin 15.1 11.1-15.9 - g/dL ?Hematocrit 47.2 H 34.0-46.6 - % ?MCV 93 79-97 - fL ?MCH 29.8 26.6-33.0 - pg ?MCHC 32.0 31.5-35.7 - g/d L ?RDW 13.2 11.7-15.4 - % ?Platelets 347 150-450 - x10E3/uL ?Neutrophils 68 Not Esta b. - % ?Lymphs 22 Not Estab. - % ?Monocytes 7 Not Estab. - % ?Eos 2 Not Estab. - % ?Basos 1 Not Estab. - % ?Neutrophils (Absolute) 5.0 1.4-7.0 - x10E3/uL ?Lymphs (Absolute) 1.7 0. 7-3.1 - x10E3/uL ?Monocytes(Absolute) 0.5 0.1-0.9 - x10E3/uL ?Eos (Absolute) 0.2 0.0-0 .4 - x10E3/uL ?Baso (Absolute) 0.1 0.0- 0.2 - x10E3/uL ?Immature Granulocytes 0 Not Estab. - % ?Immature Grans (Abs) 0.0 0.0-0.1 - x10E3/uL Lab:Comp. Metabolic Panel (1 4)-[id number] * Collection Date 08/03/2024 05/01/2024 Collection Time 10:34 AM 09:49 AM Order Date 08/03/2024 05/01/2024 Glucose 65?L (Ref Range: 70-99 mg/dL) 98 (Ref Range: 70-99 mg/dL) BUN 14 (Ref Range: 8-27 mg/dL) 14 (Ref Range: 8-27 mg/dL) Creatinine 0.70 (Ref Range: 0.57-1.00 mg/dL) 0.67 (Ref Range: 0.57-1.00 mg/dL) BUN/Creatinine Ratio 20 (Ref Range: 12-28) 21 (Ref Range: 12-28) Sodium 138 (Ref Range: 134-144 mmol/L) 142 (Ref Range: 134-144 mmol/L) Potassium 4.5 (Ref Range: 3.5-5.2 mmol/L) 4.5 (Ref Range: 3.5-5.2 mmol/L) Chloride 103 (Ref Range: 96-106 mmol/L) 105 (Ref Range: 96-106 mmol/L) Carbon Dioxide, Total 19?L (Ref Range: 20-29 mmol/L) 22 (Ref Range: 20-29 mmol/L) Calcium 10.4?H (Ref Range: 8.7-10.3 mg/dL) 10.1 (Ref Range: 8.7-10.3 mg/dL) Protein, Total 7.5 (Ref Range: 6.0-8.5 g/dL) 7.0 (Ref Range: 6.0-8.5 g/dL) Albumin 4.5 (Ref Range: 3.9-4.9 g/dL) 4.5 (Ref Range: 3.9-4.9 g/dL) Globulin, Total 3.0 (Ref Range: 1.5-4.5 g/dL) 2.5 (Ref Range: 1.5-4.5 g/dL) Bilirubin, Total 0.3 (Ref Range: 0.0-1.2 mg/dL) <0.2 (Ref Range: 0.0-1.2 mg/dL) Alkaline Phosphatase 99 (Ref Range: 44-121 IU/L) 102 (Ref Range: 44-121 IU/L) AST (SGOT) 29 (Ref Range: 0-40 IU/L) 25 (Ref Range: 0-40 IU/L) ALT (SGPT) 28 (Ref Range: 0-32 IU/L) 22 (Ref Range: 0-32 IU/L) eGFR 98 (Ref Range: >59 mL/min/1.73) 99 (Ref Range: >59 mL/min/1.73) * Lab:Hemoglobin A1C * Collection Date 08/03/2024 05/01/2024 12/21/2023 Collection Time 09:53 AM 09:01 AM 02:38 PM 04:30 PM Order Date 08/03/2024 05/01/2024 12/21/2023 09/28/2023 HbA1c 7.0 (Ref Range: %) 6.1 (Ref Range: %) 5.7 (Ref Range: %) 6.1 (Ref Range: %) * Lab:Iron and TIBC-[id number] * Collection Date 08/03/2024 05/01/2024 Collection Time 10:34 AM 09:49 AM Order Date 08/03/2024 05/01/2024 Iron Bind.Cap.(TIBC) 329 (Ref Range: 250-450 ug/dL) 344 (Ref Range: 250-450 ug/dL) UIBC 163 (Ref Range: 118-369 ug/dL) 306 (Ref Range: 118-369 ug/dL) Iron 166?H (Ref Range: 27-139 ug/dL) 38 (Ref Range: 27-139 ug/dL) Iron Saturation 50 (Ref Range: 15-55 %) 11?L (Ref Range: 15-55 %) * Lab:Ferritin-[id number] * Collection Date 08/03/2024 05/01/2024 Collection Time 10:34 AM 09:49 AM Order Date 08/03/2024 05/01/2024 Ferritin 82 (Ref Range: 15-150 ng/mL) 17 (Ref Range: 15-150 ng/mL) * Lab:Urinalysis, Complete-003 772 * Collection Date 08/03/2024 05/01/2024 Collection Time 10:34 AM 09:49 AM Order Date 08/03/2024 05/01/2024 Specific [place] 1.008 (Ref Range: 1.005-1.030) 1.010 (Ref Range: 1.005-1.030) pH 6.0 (Ref Range: 5.0-7.5) 6.0 (Ref Range: 5.0-7.5) Urine-Color Yellow (Ref Range: Yellow) Yellow (Ref Range: Yellow) Appearance Clear (Ref Range: Clear) Clear (Ref Range: Clear) WBC Esterase Negative (Ref Range: Negative) Negative (Ref Range: Negative) Protein Negative (Ref Range: Negative/Trace) Negative (Ref Range: Negative/Trace) Glucose Trace?A (Ref Range: Negative) Negative (Ref Range: Negative) Ketones Negative (Ref Range: Negative) Negative (Ref Range: Negative) Occult Blood Negative (Ref Range: Negative) Negative (Ref Range: Negative) Bilirubin Negative (Ref Range: Negative) Negative (Ref Range: Negative) Urobilinogen,Semi-Qn 0.2 (Ref Range: 0.2-1.0 mg/dL) 0.2 (Ref Range: 0.2-1.0 mg/dL) Nitrite, Urine Negative (Ref Range: Negative) Negative (Ref Range: Negative) WBC None seen (Ref Range: 0 - 5 /hpf) None seen (Ref Range: 0 - 5 /hpf) RBC 0-2 (Ref Range: 0 - 2 /hpf) None seen (Ref Range: 0 - 2 /hpf) Epithelial Cells (non renal) None seen (Ref Range: 0 - 10 /hpf) None seen (Ref Range: 0 - 10 /hpf) Casts None seen (Ref Range: None seen /lpf) None seen (Ref Range: None seen /lpf) Bacteria None seen (Ref Range: None seen/Few) None seen (Ref Range: None seen/Few) Microscopic Examination See below: See below: * Lab:Albumin/Creatinine Ratio ,Urine-[id number] * Collection Date 08/03/2024 05/01/2024 Collection Time 10:34 AM 09:49 AM Order Date 08/03/2024 05/01/2024 Creatinine, Urine 18.3 (Ref Range: Not Estab. mg/dL) 18.3 (Ref Range: Not Estab. mg/dL) Albumin, Urine <3.0 (Ref Range: Not Estab. ug/mL) 6.5 (Ref Range: Not Estab. ug/mL) Alb/Creat Ratio <16 (Ref Range: 0-29 mg/g creat) 36?H (Ref Range: 0-29 mg/g creat) ???Lab:LP+Non-HDL Cholesterol-[id number] (Order Date - 05/01/2024) (Collection Date & Time - 05/01/2024 09:49 AM)?ValueReference Range?Cholesterol, Lqgut938X969-338 - mg/dL?Ibeisdllajlgs348H4-407 - mg/dL?HDL Fdyujsyabli29>39 - mg/dL?VLDL Cholesterol Uoa903-98 - mg/dL?LDL Chol Calc ([facility])587Q6-70 - mg/dL?Non-HDL Wyyygetezim849D3-178 - mg/dL ???Lab:Vitamin D, 95-Spqjkud-[id number] (Order Date - 05/01/2024) (Collection Date & Time - 409:49 AM)?ValueReference Range?Vitamin D, 25-Snyjoyn07.130.0-100.0 - ng/mL * Examination: ???General Examination: ?GENERAL APPEARANCE:?Age appropriate, in no acute distress, well developed, well nourished.?HEAD:? atraumatic, normocephalic.?EYES:? sclera anicteric, extraocular movement full and smooth.?HEART:?regular rate and rhythm, S1, S2 normal.?LUNGS:?clear to auscultation bilaterally.?EXTREMITIES:?no clubbing, cyanosis, or edema.?NEUROLOGIC:?alert and oriented, gait normal.?PSYCH:? good eye contact, speech clear.?Face Exam: ?NOSE:?erythematous papule, see photo.? Assessment: * Assessment: 1.?Type 2 diabetes mellitus with diabetic nephropathy - E11.21 (Primary)???2.?Mild intermittent asthma, uncomplicated - J45.20???3.?Hereditary hemochromatosis - E83.110???4.?Malignant neoplasm of overlapping sites of left female breast - C50.812???5.?Gastro-esophageal reflux disease without esophagitis - K21.9???6.?Obstructive sleep apnea (adult) (pediatric) - G47.33???7.?Vitamin D deficiency, unspecified - E55.9???8.?Cellulitis of face - L03.211??? Plan: * Treatment: ? Value Reference Range ?HbA1c 5.9 - % Clinical Notes: Markedly improved with current GIP therapy. Continue same. She could increase her GIP therapy not only for better diabetes management but also for additional weight management? 2.?Mild intermittent asthma, uncomplicated? Clinical Notes: Stable at present??3.?Hereditary hemochromatosis?LAB: Ferritin-[id number] (Collection Date & Time - 10/16/2024 02:56 PM) ?LAB: Comp. Metabolic Panel (14)-[id number] (Collection Date & Time - 10/16/2024 02:56 PM) Clinical Notes: Stable at present however her ferritin is slowly increasing as well as her iron saturation. She may need phlebotomy 3 times year as opposed to 2 times year. Recheck labs and she will contact GI to see if they can schedule her phlebotomy for 3 times a year??4.?Malignant neoplasm of overlapping sites of left female breast? Clinical Notes: Continues on chemoprophylaxis as adjunct therapy for breast cancer. She has follow-up with breast center. ??5.?Gastro-esophageal reflux disease without esophagitis? Clinical Notes: Clinically stable at present??6.?Obstructive sleep apnea (adult) (pediatric)? Clinical Notes: She is having difficult time getting supplies for her CPAP machine. She has not hadany new supplies for about a year due to scheduling issues with sleep management providers. Can tryto see if we can find a different provider for her that will facilitate her treatment and otherwiseCPAP would benefit? Referral To:Abimbola Pickard??Sleep Medicine ?Reason:faxed 7.?Vitamin D deficiency, unspecified? Clinical Notes: Stable on prior labs as reviewed. Continue vitamin D supplementation for goal levelof 30+ if possible 50+??8.?Cellulitis of face? Start Doxycycline Hyclate Capsule, 100 MG, 1 capsules, Orally, every 12 hrs, 7 days, 14 Capsule. ? Clinical Notes: She developed a painful left nare about 3 to 4 days ago. She has been using hydrocortisone on it. This appears to be a suppurative cellulitis and is probably a staph related infectionand recommend antibiotic therapy.?? 9.?Others? Clinical Notes: This note was created with voice dictation recognition software and may contain errors of grammar and syntax. Also labs were reviewed with patient.?? * Procedure Codes:?83752 GLYCA GRACE HEMOGLOBIN TEST, Modifiers: QW 3044F HG A1C LEVEL LT 7.0% * Preventive Medicine:? ??Counseling:?BP Management:?LIFESTYLE RECOMMENDATION:?Lifestyle education regarding hypertension ?PHYSICAL ACTIVITY RECOMMENDATION:?Given encouragement to exercise ?BMI Care Goal follow up?Above Normal BMI Follow-up?Given encouragement to exercise ??Immunizations:?TdaP?Last Tdap was administered?10/16/2020 ?PPV 23 (pneumococcal)?Last PPV23 was administered?01/14/2017 ?Influenza?Last Influenza was administered?08/18/2022 ?COVID?Active Directory Specialist?[employer] ?First Dose?01/09/2021 ?Second Dose?02/06/2021 ??Screenings:?Colon cancer screening?Colorectal screening:?Colonoscopy ?Provider recommendation:?5 years ?Date of most recent screening:?07/03/2020 ?Osteoporosis Screening:?Date of most recent screening:?01/11/2023 * Follow Up:?4 Months (Reason: Diabetes) * Images: Billing Information: * Visit Code:? 52423 Office Visit, Est Pt., Level 4. * Procedure Codes:? 57770 GLYCATED HEMOGLOBIN TEST. Modifiers: QW 3044F HG A1C LEVEL LT 7.0%. * Sign off status: Completed true * Provider:?Fahad Esqueda MD Date:?10/16 Generated for Marily ramirez/Yolande/eTransmitting on:?11/12/2024 07:53 AM EST History and Physical Notes * HPI (History of Present Illness) Category Sub-Category Detail Notes Category Not es Hemochromatosis Shortness of breath: at baseline Asthma The patient presents for follow-up of asthma which was diagnosed years ago Examination Category Sub-Category Detail Notes Category Not es General Examination GENERAL APPEARANCE: Age appr opriate, in no acute distress, well developed, well nourished HEAD: atraumatic, normocep halic EYES: sclera anicteric, ex traocular movement full and smooth HEART: regular rate and rhy thm, S1, S2 normal LUNGS: clear to auscultatio n bilaterally NEUROLOGIC: alert and oriented, gait normal EXTREMITIES: no clubbing, cyanosi s, or edema PSYCH: good eye contact, sp eech clear Face Exam NOSE: erythematous papule, see ruma to Consultation Request Notes Referral Date Referring Provider Referred Provider Not es 10/16/2024 Fahad Esqueda Rani faxed
--- OUTSIDE RECORDS SUMMARY | 2024-11-12 07:54 | XMS_ITS ---
Author Organization Fahad Esqueda MD Address [address] [place] [phone] Care Team Providers Care Addressing Machine Operator Name Role Phone Fahad Esqueda Primary Care Provider REASON FOR VISIT Test results Encounters Encounter Location Date Provider Diagnosis Fahad Esqueda MD [address] [place] [address] [place] [phone] 08/07/2024 Fahad Esqueda Plan Of Treatment Next Appt Details Provider Name:Fahad Esqueda , 02/20/2025 09:30:00 AM, [address] [place] [address], [phone], Provider Name:Fahad Esqueda , 05/15/2025 10:15:00 AM, [address] [place] [address], [phone], Progress Notes * Brigette SALCIDO LDOB: 3 (63 yo F)Acc No.[id number]:08/07/2024 Patient:?Brigette SALCIDO :1960???Age:63 Y???Sex:Female Address:[address] [place] [address], [id number] * true * Date:? Generated for Marily ramirez/Yolande/eTransmitting on:?11/12/2024 07:53 AM EST
== END 2024-11-12 08:34 | disposition home or self-care (01) ==
PROVIDERS: PCP Internal Medicine; Visit Provider Physician Assistant Medical
DX: R53.83 Other fatigue (principal); G47.9 Sleep disorder, unspecified; R51.9 Headache, unspecified; R25.1 Tremor, unspecified; M54.2 Cervicalgia
CPT/HCPCS: 99203

== ENCOUNTER → 2024-12-26 07:57 | Outpatient (REF) | payer BC, SELFPAY ==
--- OUTSIDE RECORDS SUMMARY | 2024-12-26 08:05 | XMS_ITS ---
Author Organization Fahad Esqueda MD Address [address] [place] [phone] Care Team Providers Care Financial Writer Name Role Phone Fahad Esqueda Primary Care Provider REASON FOR VISIT Test results Encounters Encounter Location Date Provider Diagnosis Fahad Esqueda MD [address] [place] [address] [place] [phone] 10/17/2024 Fahad Esqueda Plan Of Treatment Next Appt Details Provider Name:Fahad Esqueda , 02/20/2025 09:30:00 AM, [address] [place] [address], [phone], Provider Name:Fahad Esqueda , 05/15/2025 10:15:00 AM, [address] [place] [address], [phone], Progress Notes * Brigette SALCIDO LDOB: [birth year] (63 yo F)Acc No.[id number]:10/17/2024 Patient:?Brigette SALCIDO :1960???Age:63 Y???Sex:Female Address:[address] [place] [address], [id number] * true * Date:? Generated for Marily ramirez/Yolande/eTransmitting on:?12/26/2024 08:05 AM EST
--- OUTSIDE RECORDS SUMMARY | 2024-12-26 08:05 | XMS_ITS ---
Author Organization [facility] Address [address] [phone] Care Team Providers Care Music Director Name Role Phone [facility] [...] 06:33:53 PM Interpretation: Performing Lab: Notes/Report: [facility] ([facility]), [facility] Lot: [id number] Ferritin-[id number] Reviewed date:10/17/2024 09:05:08 AM Interpretation: Performing Lab:Labcoelisa Almazan, [facility], Phone - [phone], Director - Rossiy Notes/Report: Ferritin 34 15-150 ng/mL Comp. Metabolic Panel ([id number] Reviewed date:10/17/2024 09:05:08 AM Interpretation: Performing Lab:Xavi Almazan, [facility], Phone - [phone], Director - MDJuanyy Notes/Report: Glucose 83 70-99 [...] Provider Specialty Sleep Medici ne General Notes [facility] 10/07 05:24:32 PM >faxed Referral [...] points) Points 3 Interpretation Positive Vital Signs Temperature 97.9 degrees Fahrenheit 10/16/20 24 Blood pressure systolic 124 mm Hg 10/16/20 24 Blood pressure diastolic 72 mm Hg 024 Heart Rate 67 /min 10/16/2024 Height 62.75 in 10/16/2024 Weight 201 lbs 10/16/2024 BMI 35.89 kg/m2 10/16/2024 Oximetry 97 % 10/16/2024 Encounters Encounter Location Date Provider Diagnosis Fahad Esqueda MD 50 [facility] [address] [place] [phone] 10/16/2024 Fahad Esqueda Type 2 diabetes mellitus [...] Provider Name:Fahad Esqueda , 02/20/2025 09:30:00 AM, [address] [place] [address], [address], [phone], Provider Name:Fahad Dheeraj , 05/15/2025 10:15:00 AM, [address] [place] [address], [address], [phone], Progress Notes * Brigette SALCIDO LDOB: 3 (63 yo F)Acc No.[id number]:10/16/2024 Progress Notes Patient:?Brigette SALCIDO L Provider:?Fahad Esqueda MD :1960???Age:63 Y???Sex:Female D ate:10/16/2024 Address:[address] [place] [address] Structured Data:Care team [facility] Stratification : High Risk Subjective: * [...] 89 yrs, Hemochromatosis.?Mother: , Cancer esophageal.?Son(s): 1986- [id number].?Daughter(s): 27 yrs, Healthy.?Siblings: alive, 1 brother alive [...] ???Miscellaneous:?Exercise: yes, occasionally, rowing machine,, walking. ?Occupation: Build Master to school janitor. ???Household:?Household?Marital status:?Drug/Alcohol:?AUDIT-C (Standard)?Did you have a drink [...] with the patient * Allergies:?Celebrex: Hives - OatmszuGex-B-Gbkl: AllergyImitrex: AllergySpironolactone: AllergyTrulicity: Itching - Side Effects [...] %:98% * ???Past Orders: ???Lab:CBC With Differential /Platelet-[id number] (Order Date - 05/01/2024) (Collection Date & [...] 0.0-0.1 - x10E3/uL Lab:Comp. Metabolic Panel (1 4)-[id number] * Collection Date 08/03/2024 05/01/2024 Collection Time [...] 6.1 (Ref Range: %) * Lab:Iron and TIBC-[id number] * Collection Date 08/03/2024 05/01/2024 Collection Time 10:34 AM 09:49 AM Order Date 08/03/2024 05/01/2024 Iron Bind.Cap.(TIBC) 329 (Ref Range: 250-450 ug/dL) 344 (Ref Range: 250-450 ug/dL) UIBC 163 (Ref Range: 118-369 ug/dL) 306 (Ref Range: 118-369 ug/dL) Iron 166?H (Ref Range: 27-139 ug/dL) 38 (Ref Range: 27-139 ug/dL) Iron Saturation 50 (Ref Range: 15-55 %) 11?L (Ref Range: 15-55 %) * Lab:Ferritin-[id number] * Collection Date 08/03/2024 05/01/2024 Collection Time 10:34 AM 09:49 AM Order Date 08/03/2024 05/01/2024 Ferritin 82 (Ref Range: 15-150 ng/mL) 17 (Ref Range: 15-150 ng/mL) * Lab:Urinalysis, Complete-003 772 * Collection Date 08/03/2024 05/01/2024 Collection Time 10:34 AM 09:49 AM Order Date 08/03/2024 05/01/2024 Specific [place] 1.008 (Ref Range: 1.005-1.030) 1.010 (Ref Range: [...] See below: See below: * Lab:Albumin/Creatinine Ratio ,Urine-[id number] * Collection Date 08/03/2024 05/01/2024 Collection Time 10:34 AM 09:49 AM Order Date 08/03/2024 05/01/2024 Creatinine, Urine 18.3 (Ref Range: Not Estab. mg/dL) 18.3 (Ref Range: Not Estab. mg/dL) Albumin, Urine <3.0 (Ref Range: Not Estab. ug/mL) 6.5 (Ref Range: Not Estab. ug/mL) Alb/Creat Ratio <16 (Ref Range: 0-29 mg/g creat) 36?H (Ref Range: 0-29 mg/g creat) ???Lab:LP+Non-HDL Cholesterol-[id number] (Order Date - 05/01/2024) (Collection Date & Time - 05/01/2024 09:49 AM)?ValueReference Range?Cholesterol, Tcoxs768A093-917 - mg/dL?Tzvvjeffjkasd742A1-374 - mg/dL?HDL Nezoocuvcnq79>39 - mg/dL?VLDL Cholesterol Isk421-44 - mg/dL?LDL Chol Calc ([facility])522F3-67 - mg/dL?Non-HDL Yesficoygrl463I2-809 - mg/dL ???Lab:Vitamin D, 78-Uwngwiv-[id number] (Order Date - 05/01/2024) (Collection Date & Time - 409:49 AM)?ValueReference Range?Vitamin D, 25-Ckjqisc67.130.0-100.0 - ng/mL * Examination: ???General Examination: ?GENERAL [...] uncomplicated? Clinical Notes: Stable at present??3.?Hereditary hemochromatosis?LAB: Ferritin-[id number] (Collection Date & Time - 10/16/2024 02:56 PM) ?LAB: Comp. Metabolic Panel ([id number] (Collection Date & Time - 10/16/2024 02:56 [...] labs were reviewed with patient.?? * Procedure Codes:?47041 GLYCA GRACE HEMOGLOBIN TEST, Modifiers: QW 3044F HG A1C LEVEL LT 7.0% * Preventive Medicine:? ??Counseling:?BP Management:?LIFESTYLE RECOMMENDATION:?Lifestyle education regarding hypertension ?PHYSICAL ACTIVITY RECOMMENDATION:?Given encouragement to exercise ?BMI Care Goal follow up?Above Normal BMI Follow-up?Given encouragement to exercise ??Immunizations:?TdaP?Last Tdap was administered?10/16/2020 ?PPV 23 (pneumococcal)?Last PPV23 was administered?01/14/2017 ?Influenza?Last Influenza was administered?08/18/2022 ?COVID?Legal Document Specialist?Moderna ?First Dose?01/09/2021 ?Second Dose?02/06/2021 ??Screenings:?Colon cancer screening?Colorectal screening:?Colonoscopy ?Provider recommendation:?5 years ?Date of most recent screening:?07/03/2020 ?Osteoporosis Screening:?Date of most recent screening:?01/11/2023 * Follow Up:?4 Months (Reason: Diabetes) * Images: Billing Information: * Visit Code:? 98706 Office Visit, Est Pt., Level 4. * Procedure Codes:? 94360 GLYCATED HEMOGLOBIN TEST. Modifiers: QW 3044F HG A1C LEVEL LT 7.0%. * Sign off status: Completed true * Provider:?Fahad Esqueda MD Date:?10/16 Generated for Marily ramirez/Yolande/eTransmitting on:?12/26/2024 08:04 AM EST History and Physical Notes * [...]
--- OUTSIDE RECORDS SUMMARY | 2024-12-26 08:05 | XMS_ITS | Clinical Summary ---
Author Organization [facility] Address [address] [place] [address] Phone Care Team Providers Care Real Estate Consultant Name Role Phone [facility] Unavailable Unavailable Reason for Visit and Chief [...] On 2 7:55AM By Howard Motta ; [facility] Bactrim 400-80 MG Oral Tablet 05/20/2022 Provider: Diagnosis: Last Documented On 2 7:55AM By Howard Motta ; [facility] Medications Administered Includes: Administered Medications from this encounter No Administered Medications Recorded Vital Signs Includes: Vital Signs from this encounter Vital Name 06/03/2022 08:17A Blood Pressure Sitting (mmHg) 140/85 Pulse Rate-Sitting (bpm) 66 Temp-Temporal 97.1 Height (in) 64 Weight (lb) 200 Body Mass Index (kg/m2) 34.3 Body Surface Area (m2) 2.0 Oxygen Saturation (%) 99 Last Documented: On 06/03/2022 8:17AM ; [facility] Results Includes: Results discussed during this encounter [...] Established Patient Isaiah Russo MD [facility] 022 8:20AM 8:23AM Insurance Includes: Active Insurance Policies Plan Name Member ID Group # Subscriber Relationship Effect zay Dates 1 - [employer] Elect [id number] HEATHER SALCIDO Se lf Clinical Notes Includes: Clinical Notes from this encounter No Clinical Notes Recorded
--- OUTSIDE RECORDS SUMMARY | 2024-12-26 08:05 | XMS_ITS ---
Care Plan - [facility] Created on: December 26, 2024 HEATHER SALCIDO : 1960 Sex: Female Author Organization [facility] Address [address] [place] [phone] Phone Care Team Providers Care Tie Bucker Name Role Phone [facility] Unavailable Unavailable
--- OUTSIDE RECORDS SUMMARY | 2024-12-26 08:05 | XMS_ITS | Clinical Summary ---
Author Organization [facility] Address [address] [place] [address] Phone Care Team Providers Care Gas Regulator Repairer Name Role Phone [facility] Un[facility] [phone] Reason for Visit and Chief Complaint Post Op Visit/Follow Up Plan of Treatment Pending Tests Order Diagnosis Results Due Ordering P pietro Follow Up - Appointment 1 Week Cellulit is of right finger 05/20/22 Pa Duenas MD Last Documented On 2 8:14AM ; [facility] Assessments Includes: Assessments from this encounter No Assessments Recorded Medical Equipment - Implanted Devices Includes: Current Devices No Medical Equipment Recorded Medications Includes: Medications discussed during this encounter and other current Medications Current Medications (continue as prescribed) Augmentin 500-125 MG Oral Tablet 05/20/2022 Provider : Diagnosis: Last Documented On 2 7:55AM By Howard Motta ; [facility] Bactrim 400-80 MG Oral Tablet 05/20/2022 Provider: Diagnosis: Last Documented On 2 7:55AM By Howard Motta ; [facility] Medications Administered Includes: Administered Medications from this encounter No Administered Medications Recorded Vital Signs Includes: Vital Signs from this encounter Vital Name 05/20/2022 07:54A Blood Pressure Sitting (mmHg) 107/74 Pulse Rate-Sitting (bpm) 73 Temp-Oral (F) 97.7 Height (in) 64 Weight (lb) 200 Body Mass Index (kg/m2) 34.3 Body Surface Area (m2) 2.0 Oxygen Saturation (%) 98 Last Documented: On 05/20/2022 7:55AM ; [facility] Results Includes: Results discussed during this encounter [...] Up Pa Duenas MD [facility] 05/20/20 22 8:00AM 8:16AM Insurance Includes: Active Insurance Policies Plan Name Member ID Group # Subscriber Relationship Effect zay Dates 1 - [facility] Elect [id number] HEATHER SALCIDO Se lf Clinical Notes Includes: Clinical Notes from this encounter No Clinical Notes Recorded
--- OUTSIDE RECORDS SUMMARY | 2024-12-26 08:05 | XMS_ITS ---
Author Organization [facility] Address [address] [place] [phone] Care Team Providers Care Household Appliance Mechanic Name Role Phone [facility] Primary Care Provider [phone] REASON FOR VISIT Test results Encounters Encounter Location Date Provider Diagnosis Fahad Esqueda MD [address] [place] [address] [place] [phone] 08/07/2024 Fahad Esqueda Plan Of Treatment Next Appt Details Provider Name:Fahad Esqueda , 02/20/2025 09:30:00 AM, [address] [place] [address], [phone], Provider Name:Fahad Esqueda , 05/15/2025 10:15:00 AM, [address] [place] [address], [phone], Progress Notes * AMYBrigette CARDOZO LDOB: 3 (63 yo F)Acc No.[id number]:08/07/2024 Patient:?Brigette SALCIDO :1960???Age:63 Y???Sex:Female Address:[address] [place] [address], [address] * true * Date:? Generated for Marily ramirez/Yolande/eTransmitting on:?12/26/2024 08:04 AM EST
== END ==
LOC: HO.SL 07:57
PROVIDERS: PCP Internal Medicine; Visit Provider Physician Assistant Medical
DX: G47.33 Obstructive sleep apnea (adult) (pediatric) (principal); R53.83 Other fatigue
CPT/HCPCS: 95806

== ENCOUNTER → 2024-12-26 08:11 | Outpatient (BNV) | payer BC, SELFPAY | PROVIDERS: PCP Internal Medicine; Visit Provider Psychiatry & Neurology Neurology | DX: G47.33 Obstructive sleep apnea (adult) (pediatric) (principal) | CPT/HCPCS: 95806 ==

== ENCOUNTER 2025-01-28 14:01 | Outpatient (REF) | payer BC, SELFPAY | END 2025-01-28 14:02 | disposition home or self-care (01) | LOC: HO.BBR 14:01 | PROVIDERS: PCP Internal Medicine; Visit Provider Internal Medicine Gastroenterology | DX: Z13.89 Encounter for screening for other disorder (principal) ==

== ENCOUNTER 2025-04-16 08:57 | Outpatient (AMB) | payer BC, SELFPAY ==
[2025-04-16 09:07] VITALS: BP 128/88; PULSE 70; O2SAT 99; BMI 33.3
--- NOTE | 2025-04-16 09:07 | A.OFFVIS_ITS ---
Vital Signs 04/16/25 09:07 Height 5 ft 4 in Weight 194 lb 2 oz BMI 33.3 BP 128/88 Blood Pressure Location Lt brachial Position Sitting Pulse 70 Pulse Source Pulse Oximeter Pulse Oximetry (%) 99 Oxygen Delivery Method Room Air Intake Visit Reasons: Follow up Intake Note: Patient presents follow up Sleep/Headache. HST in chart(AHI-16, SOPHY-80%, Trial APAP 5-20cm water). Accompanied by: Self / Same As Patient Allergies celecoxib [From Celebrex] Allergy (Intermediate, Verified 04/16/25 09:10) Hives bisacodyl [From Dulcolax (bisacodyl)] Allergy (Verified 04/16/25 09:10) Hives sumatriptan Allergy (Verified 04/16/25 09:10) Hives HPI Comments Details: 64 year old female with Breast cancer in remission, referred to us by PCP for sleep evaluation. HST c/w AHI 16 O2 Sophy 80% start apap 5-50yyW64. She reports she is on CPAP, however her machine was not working properly and she continues to have fragmented sleep, and feels exhausted as she has been going through some personal issues. She will package pick up her new machine and supplies next week. She uses her machine 95% of the time and we will request her FRAN compliance from Dr. Esqueda's office, sleep medicine of [facility]. She wakes up with morning headaches, which become full blown migraines and can have auras with photophobia/ phonophobia, dizziness, vertigo, and balance difficulties. She denies n/v, and says she manages the headaches with diet and lifestyle. She is in remission for Breast Cancer, on letrozole, still having hot flashes. R. side facial asymmetry and lisp is noted today, she had bells palsey>25 years ago and notices right eye sags, r. hand tremors occasionally. She denies a h/o of stroke, movement disorders, parkinsons. She is on monjarou for T2DM, A1c monitored by pcp. Her mood is stable, some family changes and she is adjusting to 's alf, she is very active. Diet is well balanced, vegetables, seafood, limits red meat, denies alcohol, smoking. Characteristics of Headaches: Frontal always radiating to the back, painful, they can and do at times become full blown migraines with auras, photo/phonophobia, vertigo, balance difficulties and nausea. [facility] Medical History (Updated 04/16/25 @ 10:34 by Veronica Gil PA-C) Breast cancer Surgical History Hx of hysterectomy Hx of cholecystectomy S/P right rotator cuff repair History of total left knee replacement Family History Mother Esophageal cancer Maternal Grandfather Leukemia Social History Household Members: Spouse Housing: House Alcohol intake: current Alcohol intake frequency: a few times a week Alcohol type: wine and hard liquor Patient Tobacco Use Status: Never used Tobacco service: No Current occupational status: retired Cognitive needs: No Hearing needs: No Vision needs: Yes Physical Exam Vital Signs: Last Vital Signs Pulse 70 04/16/25 09:07 BP 128/88 04/16/25 09:07 Pulse Ox 99 04/16/25 09:07 Oxygen Delivery Method Room Air 04/16/25 09:07 BMI result Body Mass Index 33.3 Const General: cooperative, comfortable and no acute distress Nutritional Appearance: average body habitus and obese (BMI 34) Orientation/consciousness: patient oriented x3 HEENT Face and sinus: Yes normal facial exam and Yes face symmetric Teeth and gingiva: other ([place] score of 3) Eyes Pupils: Equal, round and reactive pupils present EOM: Nystagmus present Resp Effort & Inspection: normal respiratory effort and able to speak in complete sentences Neuro Other: speech, mild lisp, and pain on extension and flexion of neck, RUE tremor. Facial asymmetry, right side droop, past bells palsey. General: patient oriented x3 and moves all extremities Cranial nerves: Yes CN's II-XII intact bilaterally, Yes Facial sensation intact/muscles of mastication intact, Yes Equal, round and reactive pupils present, Yes Normal accommodation reflex present, Yes Bilaterally intact EOM present, Yes Nystagmus not present, Yes Normal facial strength present, Yes Midline tongue present, Yes Ability to bilaterally rotate head present (Limited ROM R>L), Yes Ability to bilaterally elevate shoulders present and Yes Nystagmus present Cognition (Neuro): normal cognition Gait exam (Neuro): Normal gait present Motor exam (neuro): 5/5 motor strength present throughout, Pronator motor function not present, Tremors during motor activity present (R.hand tremor always present) and Motor abnormalites present (Tremor R Hand ) Coordination: zgabbq-ku-lpav test normal Psych Appearance: grossly normal Thought process: Normal thought process present Thought content: Normal thought content present Results Reviewed Results Reviewed: request labs from pcp request fran report from pcp Assessment & Plan Assessment & Plan (1) FRAN on CPAP: Code(s): G47.33 - Obstructive sleep apnea (adult) (pediatric) Category: Medical (2) Fatigue due to sleep pattern disturbance: Code(s): R53.83 - Other fatigue; G47.9 - Sleep disorder, unspecified Category: Medical (3) Morning headache: Code(s): R51.9 - Headache, unspecified Category: Medical (4) Tremor of right hand: Code(s): R25.1 - Tremor, unspecified Category: Medical (5) Cervicalgia: Code(s): M54.2 - Cervicalgia Category: Medical Plan FRAN continue cpap use and > 4 hours daily, change masks as needed, filters as needed and fill reservoir with distilled water. Chronic Headaches - previously trialed Sumatriptan was tried and s/e of hives Magnesium 400mg every other night. B2 Riboflavin daily at night for headaches. Declines muscle relaxers and PT for Cervicalgia today. MRI or CTscan? Headaches acute and chronic Patient Education: Use of [place], neck wraps, topical lidocaine can be helpful for Cervicalgia d/t migraines. Fatigue / due to intermittent sleep patterns will r/o deficiencies -Labs requested from her PcP Dr. Esqueda's office. Patient Education: Sleep in a dark room, no devices in bed, no fluids 2-4 hours prior to bedtime. R. Hand / UE Tremor will send her to PT if bothersome. Will Follow up in 3 months Orders: Orders CT head/brain wo IV con Today M54.2 - Cervicalgia, R51.9 - Headache, unspecified Medications: New riboflavin (vitamin B2) take one tablet daily at bedtime for headaches. 100 mg PO DAILY 60 days 60 tabs 1RF headaches MDD 100mg po daily R51.9 - Headache, unspecified magnesium oxide take one 400mg po every other night at bedtime for headaches, if you have loose stools may hold for one week and then continue every other night. 400 mg PO DAILY 30 tabs 1RF headaches MDD 400mg M54.2 - Cervicalgia, R51.9 - Headache, unspecified Patient Instructions: Sleep Hygiene provided: set a scheduled bedtime and wake time to help regulate the circadian rhythm and balance the release of pituitary hormones. Sleep in a dark room, temperatures below 68 degrees, and no devices n bed. Limit caffeinated products 6 hours prior to bed, and limit fluids 2-4 hours prior to bed. Gentle night yoga, diffusing essential oils, and playing soft music can be relaxing. Coding Level of Care Code Est Pt Level 4 (84765) Diagnoses FRAN on CPAP G47.33 Fatigue due to sleep pattern disturbance R53.83; G47.9 Morning headache R51.9 Tremor of right hand R25.1 Cervicalgia M54.2 Time Spent (min) 30 Comment Improving
--- OUTSIDE RECORDS SUMMARY | 2025-04-16 09:30 | XMS_ITS | Patient Health Record ---
Author Organization [facility] Address [address] [place] [address] [phone] Care Team Providers Care Wholesale Manager Name Role Phone [facility] Primary Care Provider Cortney West Unavailable [phone] Allergies Allergen (clinical drug ingredient) Drug/Non Drug Allergy documented on EMR Reaction Allergy Type Onset Date Status celecoxib Celebrex Hives Drug Allergy Active Doc-Q-Lace Unknown Drug Allergy Active sumatriptan Imitrex Unknown Drug Allergy Activ e spironolactone Spironolactone Unknown Drug Allergy Active dulaglutide Trulicity Itching Drug Allergy 04/08/2021 Acti ve Results Component Value Reference Range Notes Chest 2 Views Frontal and La t Reviewed date:12/27/2024 03:31:11 PM Interpretation: Performing Lab: Notes/Report: PA and lateral chest dated December 27, 2024. No prior studies are available. HISTORY: Cough. FINDINGS: The cardiac silhouette is within normal limits for size. Mural calcifications are noted in the aorta. No airspace infiltrate or pleural effusion is identified. Degenerative changes are noted in the spine. IMPRESSION: No evidence of acute pulmonary disease. Examination 59565. Thank you for allowing me to participate in the care of this patient. WSN: [id number] Ordering Physician: [facility]queda Dictated By: Zenon Merchant MD Respiratory Panel w/ SARS-Co [id number] Reviewed date:12/29/2024 12:38:01 PM Interpretation: Performing Lab:[facility], [address] [place] [address], [place], Phone - [phone], Director - Umesh Notes/Report: Clinical Information:SRC: Adenovirus Not Detected Not Detected Coronavirus HKU1 Not Detected Not Detected Coronavirus NL63 Not Detected Not Detected Coronavirus 229E Not Detected Not Detected Coronavirus OC43 Detected Not Detected SARS-CoV-2 Not Detected Not Detected Human Metapneumovirus Not Detected Not Detected Human Rhinovirus/Enterovirus Not Detected Not Detected Influenza A Not Detected Not Detected Influenza A/H1 TNP Test not perf ormed Influenza A/H1-2009 TNP Test not performed Influenza A/H3 TNP Test not perf ormed Influenza B Not Detected Not Detected Parainfluenza 1 Not Detected Not Detected Parainfluenza 2 Not Detected Not Detected Parainfluenza 3 Not Detected Not Detected Parainfluenza 4 Not Detected Not Detected Respiratory Syncytial Virus Not Detected Not Detected Bordetella parapertussis Not Detected Not Detected Bordetella pertussis Not Detected Not Detected Chlamydophila pneumoniae Not Detected Not Detected Mycoplasma pneumoniae Not Detected Not Detected Hemoglobin A1C Reviewed date:10/16/2024 06:33:53 PM Interpretation: Performing Lab: Notes/Report: [facility] MD Lot: [id number] Ferritin-[id number] Reviewed date:10/17/2024 09:05:08 AM Interpretation: Performing Lab:[facility] Alma[facility], [address] [facility], Phone - [phone], Director - Umesh Notes/Report: Ferritin 34 15-150 ng/mL Comp. Metabolic Panel (14)-3 65799 Reviewed date:10/17/2024 09:05:08 AM Interpretation: Performing Lab:[facility] Alma[facility], [address] [facility], [place], Phone - [phone], Director - Umesh Notes/Report: Glucose 83 70-99 mg/dL BUN 15 [...] 0-40 IU/L ALT (SGPT) 24 0-32 IU/L Eye Exam Reviewed date:12/03/2024 11:57:56 AM Interpretation: Performing Lab: Notes/Report: Comp. Metabolic Panel (14)-3 Reviewed date:03/03/2025 02:32:58 PM Interpretation: Performing Lab:[facility], [address] [facility], Phone - [phone], Director - MDJodry Notes/Report: Glucose 145 70-99 mg/dL BUN 11 8-27 mg/dL Creatinine 0.61 0.57-1.00 mg/dL eGFR 101 >59 mL/min/1.73 BUN/Creatinine Ratio 18 12-28 Sodium 139 134-144 mmol/L Potassium 3.8 3.5-5.2 mmol/L Chloride 103 96-106 mmol/L Carbon Dioxide, Total 19 20-29 mmol/L Calcium 9.5 8.7-10.3 mg/dL Protein, Total 7.0 6.0-8.5 g/dL Albumin 4.2 3.9-4.9 g/dL Globulin, Total 2.8 1.5-4.5 g/dL Bilirubin, Total 0.4 0.0-1.2 mg/dL Alkaline Phosphatase 99 44-121 IU/L AST (SGOT) 19 0-40 IU/L ALT (SGPT) 21 0-32 IU/L Albumin/Creatinine Ratio,Uri ne-[id number] Reviewed date:03/03/2025 02:32:58 PM Interpretation: Performing Lab:[facility], [address] [facility], [place], Phone - [phone], Director - MDJodry Notes/Report: Creatinine, Urine 131.6 Not Estab. mg/dL Albumin, Urine 15.4 Not Estab. ug/mL Alb/Creat Ratio 12 0-29 mg/g creat Normal: 0 - 29 Moderately increased: 30 - 300 Severely increased: >300 Vitamin D, 15-Mqhwppz-[id number] Reviewed date:03/03/2025 02:32:58 PM Interpretation: Performing Lab:[facility] [address] [place] [address], Phone - [phone], Director - DEJuanyy Notes/Report: Vitamin D, 25-Hydroxy 39.4 30.0-100.0 ng/mL Vitamin D deficiency has been defined by the [place] of [employer] and an Endocrine Society practice guideline as a level of serum 25-OH vitamin D less than 20 ng/mL (1,2). The Endocrine Society went on to further define vitamin D insufficiency as a level between 21 and 29 ng/mL (2). 1. IOM ([place] of [employer]). 2010. Dietary reference intakes for calcium and D. [place]: The National Academies Press. 2. Roverto MF, Mario [place], Boris ADAMS, et al. Evaluation, treatment, and prevention of vitamin D deficiency: an Endocrine Society clinical practice guideline. JCEM. 2010; 96(7):1911-30. Ferritin-[id number] Reviewed date:03/03/2025 02:32:58 PM Interpretation: Performing Lab:[facility] [place], Phone - [phone], Director - MDRuth Anndry Notes/Report: Ferritin 29 15-150 ng/mL Urinalysis, Complete-[id number] Reviewed date:03/03/2025 02:32:57 PM Interpretation: Performing Lab:[facility] [place], [address] [place] [address], Phone - [phone], Director - MDJodry Notes/Report: Specific [place] 1.021 1.005-1.030 pH 5.5 5.0-7.5 Urine-Color Yellow Yellow Appearance Clear Clear WBC Esterase 2+ Negative Protein Trace Negative/Trace Glucose Negative Negative Ketones Negative Negative Occult Blood Negative Negative Bilirubin Negative Negative Urobilinogen,Semi-Qn 0.2 0.2-1.0 mg/dL Nitrite, Urine Negative Negative Microscopic Examination See below: Micr oscopic was indicated and was performed. WBC 6-10 0 - 5 /hpf RBC 0-2 0 - 2 /hpf Epithelial Cells (non renal) 0-10 0 - 10 /hpf Casts None seen None seen /lpf Bacteria None seen None seen/Few Iron and TIBC-[id number] Reviewed date:03/03/2025 02:32:57 PM Interpretation: Performing Lab:[facility] [place], Phone - [phone], Director - Umesh Notes/Report: Iron Bind.Cap.(TIBC) 281 250-450 ug/dL UIBC 222 118-369 ug/dL Iron 59 27-139 ug/dL Iron Saturation 21 15-55 % Hemoglobin A1C Reviewed date:02/26/2025 06:41:47 PM Interpretation: Performing Lab: Notes/Report: [facility] ([facility]ad Esqueda MD Lot: [id number] Comp. Metabolic Panel (14)-3 Reviewed date:08/07/2024 06:13:28 PM Interpretation: Performing Lab:[facility] [place], [address] [place] [address], Phone - [phone], Director - Umesh Notes/Report: Glucose 65 70-99 [...] 0-40 IU/L ALT (SGPT) 28 0-32 IU/L Albumin/Creatinine Ratio,Uri ne-[id number] Reviewed date:08/07/2024 06:13:28 PM Interpretation: Performing Lab:[facility] [place], [address] [place] [address], Phone - [phone], Director - Umesh Notes/Report: Creatinine, Urine 18.3 Not Estab. mg/dL Albumin, Urine <3.0 Not Estab. ug/mL Alb/Creat Ratio <16 0-29 mg/g creat Normal: 0 - 29 Moderately increased: 30 - 300 Severely increased: >300 Ferritin-[id number] Reviewed date:08/07/2024 06:13:28 PM Interpretation: Performing Lab:[facility] [address] [place] [address], Phone - [phone], Director - Umesh Notes/Report: Ferritin 82 15-150 ng/mL Urinalysis, Complete-[id number] Reviewed date:08/07/2024 06:13:28 PM Interpretation: Performing Lab:[facility] [address] [place] [address], Phone - [phone], Director - Umesh Notes/Report: Specific [place] 1.008 1.005-1.030 pH 6.0 5.0-7.5 Urine-Color Yellow [...] seen /lpf Bacteria None seen None seen/Few Iron and TIBC-[id number] Reviewed date:08/07/2024 06:13:28 PM Interpretation: Performing Lab:[facility]ma[facility] [address] [place] [address], Phone - [phone], Director - Umesh Notes/Report: Iron Bind.Cap.(TIBC) 329 250-450 ug/dL UIBC 163 118-369 ug/dL Iron 166 27-139 ug/dL Iron Saturation 50 15-55 % Hemoglobin A1C Reviewed date:08/03/2024 01:21:37 PM Interpretation: Performing Lab: Notes/Report: [facility] Lot: [id number] PDF Report Reviewed date:06/05/2024 07:18:33 AM Interpretation: Performing Lab:[facility] [address] [place] [address], Phone - [phone], - Umesh Notes/Report: HCV Antibody-[id number] Reviewed date:06/05/2024 07:18:33 AM Interpretation: Performing Lab:[facility] [address] [place] [address], Phone - [phone], Director - MDJodry Notes/Report: Hep C Virus Ab Non Reactive Non Reactive HCV antibody alone does not differentiate between previously resolved infection and active infection. Equivocal and Reactive HCV antibody results should be followed up with an HCV RNA test to support the diagnosis of active HCV infection. LP+Non-HDL Cholesterol-03551 5 Reviewed date:06/05/2024 07:18:33 AM Interpretation: Performing Lab:[facility], [address] [facility], [place], Phone - [phone], Director - MDJodry Notes/Report: Cholesterol, Total 213 100-199 mg/dL Triglycerides 165 0-149 mg/dL HDL Cholesterol 69 >39 mg/dL VLDL Cholesterol Sridhar 29 5-40 mg/dL LDL Chol Calc (NIH) 115 0-99 mg/dL Non-HDL Cholesterol 144 0-129 mg/dL Comp. Metabolic Panel (14)-3 Reviewed date:06/05/2024 07:18:33 AM Interpretation: Performing Lab:[facility], [address] [facility], Phone - [phone], Director - MDJoy Notes/Report: Glucose 98 70-99 mg/dL BUN 14 [...] 0-40 IU/L ALT (SGPT) 22 0-32 IU/L Albumin/Creatinine Ratio,Uri ne-[id number] Reviewed date:06/05/2024 07:18:33 AM Interpretation: Performing Lab:[facility], [address] [facility], [place], Phone - [phone], Director - MDJodry Notes/Report: Creatinine, Urine 18.3 Not Estab. mg/dL Albumin, Urine 6.5 Not Estab. ug/mL Alb/Creat Ratio 36 0-29 mg/g creat Normal: 0 - 29 Moderately increased: 30 - 300 Severely increased: >300 Vitamin D, 21-Gfmpftu-[id number] Reviewed date:06/05/2024 07:18:32 AM Interpretation: Performing Lab:[facility] [place], [address] [place] [address], [place], Phone - [phone], Director - Umesh Notes/Report: Vitamin D, 25-Hydroxy 41.1 30.0-100.0 ng/mL Vitamin D deficiency has been defined by the [place] [employer] and an Endocrine Society practice guideline as a level of serum 25-OH vitamin D less than 20 ng/mL (1,2). The Endocrine Society went on to further define vitamin D insufficiency as a level between 21 and 29 ng/mL (2). 1. IOM ([place]). 2010. Dietary reference intakes for calcium and D. [place]: The National Academies Press. 2. Roverto MF, [place], Boris ADAMS, et al. Evaluation, treatment, and prevention of vitamin D deficiency: an Endocrine Society clinical practice guideline. JCEM. 2010; 96(7):1911-30. CBC With Differential/Platel et-[id number] Reviewed date:06/05/2024 07:18:32 AM Interpretation: Performing Lab:[facility] [place], [address] [facility], [place], Phone - [phone], Director - Umesh Notes/Report: WBC 7.4 3.4-10.8 [...] % Immature Grans (Abs) 0.0 0.0-0.1 x10E3/uL Ferritin-[id number] Reviewed date:06/05/2024 07:18:32 AM Interpretation: Performing Lab:[facility] [place], [address] [place] [address], Phone - [phone], Director - MDJodry Notes/Report: Ferritin 17 15-150 ng/mL Urinalysis, Complete-[id number] Reviewed date:06/05/2024 07:18:32 AM Interpretation: Performing Lab:[facility], [address] [place] [address], Phone - [phone], Director - MDJodry Notes/Report: Specific [place] 1.010 1.005-1.030 pH 6.0 5.0-7.5 Urine-Color Yellow [...] seen /lpf Bacteria None seen None seen/Few Iron and TIBC-[id number] Reviewed date:06/05/2024 07:18:32 AM Interpretation: Performing Lab:[facility] [place], [address] [place] [address], [place], Phone - [phone], Director - MDJodry Notes/Report: Iron Bind.Cap.(TIBC) 344 250-450 ug/dL UIBC 306 118-369 ug/dL Iron 38 27-139 ug/dL Iron Saturation 11 15-55 % Hemoglobin A1C Reviewed date:06/05/2024 07:18:33 AM Interpretation: Performing Lab: Notes/Report: [facility] Lot: [id number] Reason For Referral Reason faxed Diagnosis 1 Hereditary hemochrom atosis (E83.110) Referral Organization [facility] Referring Provider First Name Fahad Referring Provider Last Name Dheeraj Referring Provider Speciality Internal M edicine Referred Provider Chapito Bailon Referred Provider Specialty Gastroentero logy General Notes [facility] 04/08 10:51:06 AM >faxed Referral Priority Routine Reason faxed Diagnosis 1 Obstructive sleep ap herve (adult) (pediatric) (G47.33) Referral Organization [facility] Referring Provider First Name Fahad Referring Provider Last Name Dheeraj Referring Provider Speciality Internal edicine Referred Provider Abimbola Pickard Referred Provider Specialty Sleep Medici ne General Notes Lissa CRAWFORD 10/07 05:24:32 PM >faxed Referral Priority Routine Medications Medication SIG (Take, Route, Frequency, Duration) Notes Start Date End Date Status Multi For Her Active Vitamin D3 2000 UNIT 2 Orally Once a day for 30 day(s) Active Rosuvastatin Calcium 10 MG 1 tablet Orally Three Times a Week for 90 days 02/26/2025 Active Loratadine 10 MG 1 tablet Orally Once a day for 30 day(s) Active Letrozole 2.5 MG 1 tablet Orally Once a day for 30 day(s) Active Fluticasone Furoate-Vilanterol 200-25 MCG/ACT INHALE 1 PUFF BY MOUTH EVERY DAY for 90 Active Azelastine HCl 137 MCG/SPRAY 2 puffs (1 spray in each nostril) Nasally Twice a day for 30 days 12/27/2024 Active Omeprazole 40 MG TAKE 1 CAPSULE BY MOUTH EVERY DAY 30 MINUTES BEFORE BREAKFAST for 90 Active Farxiga 10 MG 1 tablet Orally Once a day for 90 days Brand name only 12/21/2023 08/02/2025 Active Acetaminophen 500 MG 1 tablet as needed Orally every 6 hrs Active Calcium 1200+D3 1200/1000 by mouth daily Active Calcium 600 MG Activ e Mounjaro 12.5 MG/0.5ML 12.5 mg Subcutane ous Once a Week Active Immunizations Vaccine Route Administration Date Status Comme nts Influenza Vaccine, Seasonal, Quadrivalent, Recombinant, Preservative Free Unknown 08/27/2020 Administered Influenza, seasonal, injectable (split), for 3 yrs and up Unknown 08/09/2012 Administered Influenza, seasonal, injectable (split), for 3 yrs and up Unknown 07/27/2013 Administered Influenza, seasonal, injectable (split), for 3 yrs and up Unknown 12/25/2014 Administered Influenza, seasonal, injectable (split), for 3 yrs and up Unknown 10/15/2015 Administered Influenza, seasonal, injectable (split), for 3 yrs and up Unknown 07/20/2017 Administered Influenza-Afluria (IIV4) Unknown 08/06/2021 Administered Hep A-Hep B Unknown 11/08/2007 Administered Mfd by Glax o [employer] To Hep A-Hep B Unknown 12/06/2007 Administered Mfd by Glax o [employer] Hep A-Hep B Unknown 08/26/2008 Administered Mfd by Glax o [employer] VYWKD-25-Ygkqxag Vaccine Unknown 01/09/2021 Administered MPAEC-80-Icuoglk Vaccine Unknown 02/06/2021 Administered YGWQX-84-Kbugcjv Vaccine Unknown 10/12/2021 Administered COVID-19 Moderna BiValent Booster Unknown 09/17/2022 Administered *Tdap Unknown 04/24/2013 Administered *Tdap Unknown 10/16/2020 Administered *Influenza-Medicare-A S IM Intramuscular 08/06/2021 Administered *Influenza-Fluzone IM Intramuscular 08/03/2024 Administere d *Dxzzierdh-Uerh-RA IM Intramuscular 09/26/2019 Administere d *Cggqryxyl-Fqmy-VA IM Intramuscular 08/18/2022 Administere d Pneumococcal polysaccharide PPV23 Unknown 12/08/2011 Administered Pneumococcal polysaccharide PPV23 Unknown 01/14/2017 Administered Varicella Unknown 12/11/2018 Administered Series 1 as a child Social History Alcohol Screen (Audit-C) Question Answer Notes Did [...] (C50.812) Active confirmed Problem Diabetic renal disease (586740845) 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719) Active confirmed Problem Obstructive sleep apnea syndrome (93469802) Obstructive sleep apnea (adult) (pediatric) (G47.33) Active confirmed Problem Mild intermittent asthma (639475764) Mild intermittent asthma, uncomplicated (J45.20) Active confirmed Problem Gastro-esophageal reflux disease without esophagitis (081908944) Gastro-esophageal reflux disease without esophagitis (K21.9) Active confirmed Problem Diverticular disease of colon (931728370) Diverticulosis of large intestine without perforation or abscess without bleeding (K57.30) Active confirmed Problem Cholesterolosis of gallbladder (39773507) Cholesterolosis of gallbladder (K82.4) Active confirmed Problem Jennifer node (33073030) 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) Active confirmed Problem Cervical spondylosis without myelopathy (785532654) Other spondylosis with radiculopathy, cervical region (M47.22) Active confirmed Problem Cervical spondylosis without myelopathy (239438054) Spondylosis without myelopathy or radiculopathy, cervical region (M47.812) Active confirmed Problem Cervicalgia (60818747) Cervicalgia (M54.2) Active confirmed Problem Artificial knee joint present (604127954545) Presence of left artificial knee joint (Z96.652) Active confirmed Problem History of polyp of colon (situation) (414649466) Personal history of colonic polyps (Z86.010) Active confirmed Problem Body mass index 35.00 to 39.99 (820045395313440) Body mass index [BMI] 37.0-37.9, adult (Z68.37) Active confirmed Problem Brachial plexus disorder (8318951) Brachial plexus disorders (G54.0) Inactive confirmed Problem Impaired fasting glucose (706016144) Impaired fasting glucose (R73.01) Inactive confirmed Problem Muscle pain (57798569) Myalgia, unspecified site (M79.10) Inactive confirmed Problem Body mass index 35.00 to 39.99 (385221002358110) Body mass index [BMI] 39.0-39.9, adult (Z68.39) Inactive confirmed Problem Cellulitis of finger of right hand (40499663539232016 ) Cellulitis of right finger (L03.011) Problem resolved confirmed Problem Abnormal findings on diagnostic imaging of breast (012836216) Other abnormal and inconclusive findings on diagnostic imaging of breast (R92.8) Problem resolved confirmed Vital Signs Heart Rate 92 /min 02/26/2025 Temperature 98.0 degrees Fahrenheit 02/26/2025 Blood pressure diastolic 76 mm Hg 02/26/2025 Oximetry 98 % 02/26/2025 Height 62.75 in 02/26/2025 Blood pressure systolic 126 mm Hg 02/26/2025 Weight 193 lbs 02/26/2025 BMI 34.46 kg/m2 02/26/2025 Encounters Encounter Location Date Provider Diagnosis Fahad Esqueda MD [address] [id number] 05/01/2024 Fahad Esqueda Type 2 diabetes mellitus with [...] Radial styloid tenosynovitis [de Quervain] M65.4 Fahad Esqueda MD [address] [id number] 08/03/2024 Fahad Esqueda Type 2 diabetes mellitus with diabetic nephropathy E11.21 ; Mild intermittent asthma, uncomplicated J45.20 ; Hereditary hemochromatosis E83.110 ; Malignant neoplasm of overlapping sites of left female breast C50.812 ; Gastro-esophageal reflux disease without esophagitis K21.9 ; Obstructive sleep apnea (adult) (pediatric) G47.33 ; Vitamin D deficiency, unspecified E55.9 and Encounter for immunization Z23 Fahad Esqueda MD [address] [id number] 10/16/2024 Fahad Esqueda Type 2 diabetes mellitus with diabetic nephropathy E11.21 ; Mild intermittent asthma, uncomplicated J45.20 ; Hereditary hemochromatosis E83.110 ; Malignant neoplasm of overlapping sites of left female breast C50.812 ; Gastro-esophageal reflux disease without esophagitis K21.9 ; Obstructive sleep apnea (adult) (pediatric) G47.33 ; Vitamin D deficiency, unspecified E55.9 and Cellulitis of face L03.211 Fahad Esqueda MD [address] [id number] 12/27/2024 Cortney West Acute cough R05.1 ; Acute upper respiratory infection, unspecified J06.9 and Postnasal drip R09.82 Fahad Esqueda MD [address] [id number] 02/26/2025 Fahad Esqueda Type 2 diabetes mellitus with diabetic nephropathy E11.21 ; Mild intermittent asthma, uncomplicated J45.20 ; Hereditary hemochromatosis E83.110 ; Malignant neoplasm of overlapping sites of left female breast C50.812 ; Gastro-esophageal reflux disease without esophagitis K21.9 ; Obstructive sleep apnea (adult) (pediatric) G47.33 ; Mixed hyperlipidemia E78.2 and Vitamin D deficiency, unspecified E55.9 Fahad Esqueda MD [address] [id number] 08/07/2024 Fahad Esqueda Type 2 diabetes mellitus with diabetic nephropathy E11.21 Fahad Esqueda MD [address] [id number] 08/07/2024 Fahad Esqueda MD [address] [id number] 10/17/2024 Fahad Esqueda MD [address] [id number] 12/27/2024 Fahad Esqueda Acute bronchitis due to other specified organisms J20.8 Fahad Esqueda MD [address] [id number] 02/18/2025 Fahad Esqueda Assessments Encounter Date Diagnosis (ICD Code) Assessment [...] mellitus with diabetic nephropathy (ICD-10 - E11.21) 10/16/2024 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 Continue same. She could increase her GIP therapy not only for better diabetes management but also for additional weight management 10/16/2024 Mild intermittent asthma, uncomplicated (ICD-10 - J45.20) Stable at present 12/27/2024 Acute upper respiratory infection, unspecified (ICD-10 - J06.9) Patient with recent travel and due to her symptoms did obtain a resp panel swab to assess for underlying viral illness. 12/27/2024 Acute cough (ICD-10 - R05.1) Reviewed with patient her presenting symptoms and would like patient to complete a chest x-ray as she is traveling to [place] and leaving on Tuesday. Discussed with patient that her lung sounds are clear but would like to complete this chest x-ray and begin proper treatment if warranted depending on results. Also prescribed Tessalon Perles to assist with chest congestion symptoms. 12/27/2024 Acute bronchitis due to other specified organisms (ICD-10 - J20.8) 02/26/2025 Type 2 diabetes mellitus with diabetic nephropathy (ICD-10 - E11.21) Stable with current GIP therapy. Continue same. 02/26/2025 Mild intermittent asthma, uncomplicated (ICD-10 - J45.20) Stable at present 05/01/2024 Type 2 diabetes mellitus with diabetic [...] Z00.00) General healthcare up-to-date. Check routine labs 05/01/2024 Mild intermittent asthma, uncomplicated (ICD-10 - J45.20) Stable at present 02/26/2025 Hereditary hemochromatosis (ICD-10 - E83.110) Stable with periodic phlebotomy. Continue periodic phlebotomy to try to maintain low ferritin 12/27/2024 Postnasal drip (ICD-10 - R09.82) Reviewed symptoms and findings of PND on exam. Pt to begin use of Azelastine nasal spray to further assist with PND symptoms. Pt can also gargle to warm salt water to further assist in managing her PND symptoms. 10/16/2024 Hereditary hemochromatosis (ICD-10 - E83.110) Stable at present however her ferritin is slowly increasing as well as her iron saturation. She may need phlebotomy 3 times year as opposed to 2 times year. Recheck labs and she will contact GI to see if they can schedule her phlebotomy for 3 times a year 08/03/2024 Hereditary hemochromatosis (ICD-10 - E83.110) Stable on recent labs reviewed. Can recheck status. She has some cramps which may be related to her depressed ferritin. Unfortunately may not be able to treat this due to hemochromatosis and iron toxicity if we allow her to have a higher ferritin level. 08/03/2024 Malignant neoplasm of overlapping sites of left female breast (ICD-10 - C50.812) Continues on chemoprophylaxis as adjunct therapy for breast cancer. She has follow-up with [facility]. 10/16/2024 Malignant neoplasm of overlapping sites of left female breast (ICD-10 - C50.812) Continues on chemoprophylaxis as adjunct therapy for breast cancer. She has follow-up with [facility]. 02/26/2025 Malignant neoplasm of overlapping sites of left female breast (ICD-10 - C50.812) Continues on chemoprophylaxis as adjunct therapy for breast cancer. She has follow-up with [facility]. 05/01/2024 Hereditary hemochromatosis (ICD-10 - E83.110) Stable at present. She is trying to get her phlebotomy prescription refilled at . Recommend follow-up there and if not able to then would consider prescribing phlebotomy at local blood bank. 02/26/2025 Gastro-esophageal reflux disease without esophagitis (ICD-10 - K21.9) Clinically stable at present 05/01/2024 Malignant neoplasm of overlapping sites of left female breast (ICD-10 - C50.812) Continues on chemoprophylaxis as adjunct therapy for breast cancer. She has follow-up with [facility]. She has mammogram pending later this fall. [...] her treatment and otherwise CPAP would benefit 08/03/2024 Obstructive sleep apnea (adult) (pediatric) (ICD-10 - G47.33) Continues to use CPAP with benefit. 02/26/2025 Obstructive sleep apnea (adult) (pediatric) (ICD-10 - G47.33) Stable at present 05/01/2024 Gastro-esophageal reflux disease without esophagitis (ICD-10 - K21.9) Clinically stable at present 05/01/2024 Obstructive sleep apnea (adult) (pediatric) (ICD-10 - G47.33) Continues to use CPAP with benefit. She would benefit from increasing Mounjaro dose not only for diabetes management but also for CPAP improvement. Recent data suggest that she may have a 50% improvement with additional weight loss. 02/26/2025 Mixed hyperlipidemia (ICD-10 - E78.2) Her LDL is slightly elevated and her cardiovascular risk is increasing. It is approaching the intermediate level. Recommend medical therapy to reduce cardiovascular risk by adjusting LDL for goal level of less than 70 08/03/2024 Vitamin D deficiency, unspecified (ICD-10 - E55.9) Stable on prior labs as reviewed. Continue vitamin D supplementation for goal level of 30+ if possible 50+ 10/16/2024 Vitamin D deficiency, unspecified (ICD-10 - [...] staph related infection and recommend antibiotic therapy. 02/26/2025 Vitamin D deficiency, unspecified (ICD-10 - E55.9) Stable on prior labs as reviewed. Continue vitamin D supplementation for goal level of 30+ if possible 50+ 05/01/2024 Personal history of colonic polyps (ICD-10 [...] M65.4) She had been working in the [employer] and developed left thumb pain which is de Quervain's tendinitis. Recommend [id number] thumb spica splint and if not improving in 2 weeks then will need referral for injection evaluation 05/01/2024 Other This note was created with voice dictation recognition software and may contain errors of grammar and syntax. Also labs were reviewed with patient. 10/16/2024 Other This note was created with voice dictation recognition software and may contain errors of grammar and syntax. Also labs were reviewed with patient. 02/26/2025 Other This note was created with voice dictation recognition software and may contain errors of grammar and syntax. Also labs were reviewed with patient. Plan Of Treatment Pending Test Test Name Order Date Hemoglobin A1c 01/24/2019 Pulmonary Function Test 12/09/2021 25OH VITAMIN D 08/18/2022 25OH VITAMIN D 01/20/2023 25OH VITAMIN D 01/01/2021 COMPLETE CBC WITH DIFF 01/20/2023 COMPLETE URINALYSIS 01/20/2023 COMPLETE URINALYSIS 08/18/2022 COMPLETE URINALYSIS 01/01/2021 COMPREHENSIVE METABOLIC PANEL 08/18/2022 COMPREHENSIVE METABOLIC PANEL 01/01/2021 COMPREHENSIVE METABOLIC PANEL 01/20/2023 FERRITIN 08/18/2022 FERRITIN 01/20/2023 FERRITIN 01/01/2021 HEMOGLOBIN A1C 01/20/2023 IRON & TIBC 01/20/2023 LIPID PANEL W REFLEX TO DLDL 01/01/2021 TSH 01/01/2021 URINARY MICROALBUMIN 01/01/2021 URINARY MICROALBUMIN 01/20/2023 URINARY MICROALBUMIN 08/18/2022 Hand Min 3 Views Left 07/14/2023 VITAMIN D, 25-HYDROXY 04/08/2021 Knee 1 or 2 Views Left 01/20/2023 Hand Min 3 Views Right 07/14/2023 ANTI-HEPATITIS C W/RFLX HCV QNT 05/17/20 HIV AB-AG W/RFLX TO HIV QNT 05/17/2022 Future Test Test Name Order Date COMPREHENSIVE METABOLIC PANEL 02/04/2019 Next Appt Details Provider Name:Fahad Esqueda , 05/15/2025 10:15:00 AM, [address] [place] [address], [facility] [address], [place], [place], [phone], Insurance Providers Payer Name Payer Address Payer Phone Subscriber Number Group Number Insured Name Patient Relationship to Insured Coverage Start Date Coverage End Date [facility] BL[facility] C[facility] [address] [place] [address] [id number] Brigette Gordon Self - patient is the insured Medical [...]
== END 2025-04-16 09:59 | disposition home or self-care (01) ==
LOC: HO.HSMS 08:57
PROVIDERS: PCP Internal Medicine; Visit Provider Physician Assistant Medical
DX: G47.33 Obstructive sleep apnea (adult) (pediatric) (principal); R53.83 Other fatigue; G47.9 Sleep disorder, unspecified; R51.9 Headache, unspecified; R25.1 Tremor, unspecified; M54.2 Cervicalgia
CPT/HCPCS: 99214

== ENCOUNTER 2025-05-28 09:57 | Outpatient (REF) | payer BC, SELFPAY ==
--- OUTSIDE RECORDS SUMMARY | 2025-05-15 06:15 | XMS_ITS ---
Author Organization Fahad Esqueda MD Address [address] [place] [phone] Care Team Providers Care International Marketing Executive Name Role Phone Fahad Esqueda Primary Care Provider [phone] REASON FOR VISIT Annual Encounters Encounter Location Date Provider Diagnosis Fahad Esqueda MD [address] [place] [address] [place] [phone] 05/15/2025 Fahad Esqueda Plan Of Treatment Next Appt Details Provider Name:Fahad Esqueda 05/28/2025 01:30:00 PM, [address] [place] [address], [address], [phone], Progress Notes * Brigette SALCIDO LDOB: 3 (64 yo F)Acc No.[id number]:05/15/2025 Progress Notes Patient: Brigette VERONICA Provider: Morteza Esqueda MD :1960 A ge:64 Y S ex:Female Date:05/15/2025 Address:[address] [place], [place] [phone] Structured Data:Care team Ri sk Stratification : High Risk Subjective: * Chief Complaints: * 1 . Annual. * Medical History: * Ocular Surgical History: Objective: * Vitals: Past Vitals:* 02/26/2025 Temp:98.0F, HR:92/min, BP:Si tting Right Arm: 126/76mm Hg, Wt:193lbs, BMI:34.46Index, Ht:62.75in, Oxygen sat %:98% * 12/27/2024 Temp:96.7F, HR:80/min, Wt:20 0lbs, BMI:35.71Index, Ht:62.75in, Oxygen sat %:98% * 10/16/2024 Temp:97.9F, HR:67/min, BP:Si tting Right Arm: 124/72mm Hg, Wt:201lbs, BMI:35.89Index, Ht:62.75in, Oxygen sat %:97% Assessment: Plan: * Treatment: Care Plan: * Problems: * Images: Billing Information: * Visit Code: * Procedure Codes: * Electronic signature of Connie Esqueda MD on 05/28/2025 at 10:51 AM EDT Sign off status: Pending * Provider: Morteza Esqueda MD Date: 05/15/2025 Generated for Marily ramirez/Yolande/Kimberley on: 05/28/2025 10:51 AM EDT
== END 2025-05-28 09:58 | disposition home or self-care (01) ==
LOC: HO.BBR 09:57
PROVIDERS: PCP Internal Medicine; Visit Provider Internal Medicine Gastroenterology
DX: Z13.89 Encounter for screening for other disorder (principal)

== ENCOUNTER 2025-09-23 13:51 | Outpatient (REF) | payer BC, SELFPAY | END 2025-09-23 13:52 | disposition home or self-care (01) | LOC: HO.BBR 13:51 | PROVIDERS: PCP Internal Medicine; Visit Provider Physician Assistant | DX: Z13.89 Encounter for screening for other disorder (principal) ==